=== PATIENT | female | born 1975 | race Caucasian/White ===

== ENCOUNTER 2018-10-26 17:00 | Emergency (ER) | payer MEDICAID, OTHER ==
[~2018-10-26] VITALS: Ht 170.2 cm; Wt 83.9 kg
--- NOTE | 2018-10-26 17:35 | ED Abdominal Pain ---
General Stated Complaint: ABD PAIN, ABD SWELLING Source of Information: Patient Exam Limitations: No Limitations (MARKELL BYERS MD) History of Present Illness Date Seen by Provider: Oct 26, 2018 Time Seen by Provider: 17:32 Initial Comments This 43-year-old white female presents with a complaint of abdominal pain and bloating. The patient has had similar complaints for a prolonged period of time. She has had CAT scan, EGD, and a plethora of laboratory testing. Patient scheduled to see a project accountant at [facility] in November. The patient's pain is sharp in nature located in the lower abdomen. There is no associated vomiting, diarrhea, dysuria, flank pain, fever or chill. Patient is status post cholecystectomy. Patient was seen in the urgent care clinic today and given a steroid shot for her lupus. (MARKELL BYERS MD) Allergies and Home Medications Allergies Coded Allergies: tramadol (Verified Allergy, Intermediate, 10/26/18) Patient Home Medication List Home Medication List Reviewed: Yes (MARKELL BYERS MD) Review of Systems Review of Systems Constitutional: No chills, No fever EENTM: No Symptoms Reported Cardiovascular: Denies Chest Pain Gastrointestinal: See HPI, Abdominal Pain; Denies Diarrhea, Denies Vomiting Genitourinary: No Symptoms Reported Musculoskeletal: joint pain (Lupus) Skin: no symptoms reported Psychiatric/Neurological: No Symptoms Reported Endocrine: No Symptoms Reported Hematologic/Lymphatic: No Symptoms Reported (MARKELL BYERS MD) Past Bwbilxy-Qlawgn-Hmfkdv Hx Past Med/Social Hx: Reviewed Nursing Past Med/Soc Hx (MARKELL BYERS MD) Patient Social History Recent Foreign Travel: No Contact w/Someone Who Travel: No (MARKELL BYERS MD) Physical Exam Vital Signs Vital Signs - First Documented 10/26/18 17:09 Temp 98.6 Pulse 99 Resp 18 B/P (MAP) 131/82 (98) Pulse Ox 97 (ZACHARY BRANDON DO) Vital Signs Capillary Refill : (MARKELL BYERS MD) Height/Weight/BMI Height: '" Weight: lbs. oz. kg; BMI Method: General Appearance: WD/WN, mild distress HEENT: normal ENT inspection Neck: full range of motion Respiratory: wheezing Cardiovascular: regular rate, rhythm Gastrointestinal: normal bowel sounds, tenderness (moderate in the lower abdomen. No masses or rebound was present.) Extremities: normal range of motion, normal inspection Back: normal inspection Neurologic/Psychiatric: no motor/sensory deficits, alert, normal mood/affect Skin: normal color, warm/dry (MARKELL BYERS MD) Progress/Results/Core Measures Results/Orders Lab Results Laboratory Tests Test 10/26/18 17:35 10/26/18 17:50 Range/Units White Blood Count 5.8 4.3-11.0 10^3/uL Red Blood Count 3.95 L 4.35-5.85 10^6/uL Hemoglobin 12.5 11.5-16.0 G/DL Hematocrit 38 35-52 % Mean Corpuscular Volume 95 80-99 FL Mean Corpuscular Hemoglobin 32 25-34 PG Mean Corpuscular Hemoglobin Concent 33 32-36 G/DL Red Cell Distribution Width 11.7 10.0-14.5 % Platelet Count 252 130-400 10^3/uL Mean Platelet Volume 10.6 H 7.4-10.4 FL Neutrophils (%) (Auto) 84 H 42-75 % Lymphocytes (%) (Auto) 14 12-44 % Monocytes (%) (Auto) 1 0-12 % Eosinophils (%) (Auto) 0 0-10 % Basophils (%) (Auto) 0 0-10 % Neutrophils # (Auto) 4.9 1.8-7.8 X 10^3 Lymphocytes # (Auto) 0.8 L 1.0-4.0 X 10^3 Monocytes # (Auto) 0.0 0.0-1.0 X 10^3 Eosinophils # (Auto) 0.0 0.0-0.3 10^3/uL Basophils # (Auto) 0.0 0.0-0.1 10^3/uL Sodium Level 140 135-145 MMOL/L Potassium Level 4.1 3.6-5.0 MMOL/L Chloride Level 106 98-107 MMOL/L Carbon Dioxide Level 16 L 21-32 MMOL/L Anion Gap 18 H 5-14 MMOL/L Blood Urea Nitrogen 10 7-18 MG/DL Creatinine 0.55 L 0.60-1.30 MG/DL Estimat Glomerular Filtration Rate > 60 BUN/Creatinine Ratio 18 Glucose Level 145 H 70-105 MG/DL Calcium Level 9.1 8.5-10.1 MG/DL Corrected Calcium 8.5-10.1 MG/DL Total Bilirubin 0.2 0.1-1.0 MG/DL Aspartate Amino Transf (AST/SGOT) 11 5-34 U/L Alanine Aminotransferase (ALT/SGPT) 6 0-55 U/L Alkaline Phosphatase 98 40-136 U/L Total Protein 7.5 6.4-8.2 GM/DL Albumin 4.7 H 3.2-4.5 GM/DL Lipase 47 8-78 U/L Urine Color YELLOW Urine Clarity CLEAR Urine pH 5.5 5-9 Urine Specific [place] <=1.005 1.016-1.022 Urine Protein NEGATIVE NEGATIVE Urine Glucose (UA) NEGATIVE NEGATIVE Urine Ketones NEGATIVE NEGATIVE Urine Nitrite NEGATIVE NEGATIVE Urine Bilirubin NEGATIVE NEGATIVE Urine Urobilinogen 0.2 NORMAL MG/DL Urine Leukocyte Esterase NEGATIVE NEGATIVE Urine RBC (Auto) TRACE H NEGATIVE Urine RBC 2-5 H /HPF Urine WBC 0-2 /HPF Urine Squamous Epithelial Cells 2-5 /HPF Urine Renal Epithelial Cells NONE /HPF Urine Crystals NONE /LPF Urine Bacteria TRACE /HPF Urine Casts NONE /LPF Urine Mucus NONE /LPF Urine Culture Indicated NO (ZACHARY BRANDON DO) My Orders Orders - ZACHARY BRANDON DO Ns Iv 1000 Ml (Sodium Chloride 0.9%) (10/26/18 18:28) (ZACHARY BRANDON DO) Medications Given in ED Current Medications Medications Dose Ordered Sig/Jill Route Start Time Stop Time Status Last Admin Dose Admin Fentanyl Citrate 50 mcg ONCE ONCE IVP 10/26/18 17:45 10/26/18 17:46 DC 10/26/18 17:44 50 MCG (ZACHARY BRANDON DO) Vital Signs/I&O 10/26/18 17:09 Temp 98.6 Pulse 99 Resp 18 B/P (MAP) 131/82 (98) Pulse Ox 97 (ZACHARY BRANDON DO) Progress Progress Note : Progress Note Boubacar addendum: I assumed care of patient at 6 PM. She relayed a history of chronic right upper quadrant pain sometimes radiating towards the right back, with associated nausea but no vomiting. She has had issues with constipation in the past however she states she is having normal bowel movements at this time, no blood, no melena, no urinary symptoms like frequency or dysuria or hematuria. No shortness of breath or coughing or fever. No pleuritic pain. Abdominal exam for me is benign, mild right upper quadrant tenderness that reproduces pain of chief complaint. Given history of remote bowel obstruction and cholecystectomy spoke to patient about the possibility of a partial bowel obstruction however her abdominal exam is completely benign. She is comfortable at this time. She also has had findings of delayed gastric emptying on prior EGD , she was not familiar with the term gastroparesis. She had taken metoclopramide in the past without adverse effect. Patient did have a mild metabolic acidosis, I suspect that this is related to dehydration. I do not suspect sepsis, I do not suspect gut ischemia. There is no "pain out of proportion", there is no atrial fibrillation. I did provide a fluid bolus. Patient is tolerating oral intake and feels better. She would like to go home. She will return for any new or worsening symptoms. I recommended that she keep her upcoming appointment with gastroenterology and I also recommended that she make an appointment with a general surgeon. She has not been able to follow-up with the surgeon because her cholecystectomy was in [place]. She is stable for discharge at this time. (ZACHARY BRANDON DO) Departure Impression Primary Impression: Abdominal pain Additional Impressions: Nausea Metabolic acidosis Disposition: HOME, SELF-CARE Condition: Stable Departure-Patient Inst. Referrals: NO,LOCAL PHYSICIAN (PCP) Primary Care Physician CLARK HERNÁNDEZ DO Patient Instructions: Dehydration, Adult (DC) Scripts Lansoprazole (Lansoprazole) 15 Mg Capsule. 15 MG PO DAILY for 60 Days, #60 CAP Prov: ZACHARY BRANDON DO 10/26/18 Metoclopramide HCl (Metoclopramide HCl) 10 Mg Tablet 10 MG PO QIDPCHS for 30 Days, #120 TAB Prov: ZACHARY BRANDON DO 10/26/18 MARKELL BYERS MD Oct 26, 2018 17:35 ZACHARY BRANDON DO Oct 26, 2018 19:07
[2018-10-26 17:45] LABS: HEMATOCRIT 38 % (35-52); HEMOGLOBIN 12.5 G/DL (11.5-16.0); MEAN CORPUSCULAR HEMOGLOBIN 32 PG (25-34); WHITE BLOOD COUNT 5.8 10^3/uL (4.3-11.0)
[2018-10-26] MEDS ORDERED: fentaNYL INJECTION 100 MCG/2 ML AMP IVP ONE (17:45)
[2018-10-26 17:46] LABS: BASOPHILS % (AUTO) 0 % (0-10); EOSINOPHILS % (AUTO) 0 % (0-10); LYMPHOCYTES # (AUTO) 0.8 X 10^3 (1.0-4.0); LYMPHOCYTES % (AUTO) 14 % (12-44); MEAN CORPUSCULAR HGB CONC 33 G/DL (32-36); MEAN CORPUSCULAR VOLUME 95 FL (80-99); MEAN PLATELET VOLUME 10.6 FL (7.4-10.4); MONOCYTES % (AUTO) 1 % (0-12); NEUTROPHILS # (AUTO) 4.9 X 10^3 (1.8-7.8); NEUTROPHILS % (AUTO) 84 % (42-75); PLATELET COUNT 252 10^3/uL (130-400); RED CELL DISTRIBUTION WIDTH 11.7 % (10.0-14.5)
[2018-10-26 18:17] LABS: ALKALINE PHOSPHATASE 98 U/L (40-136); BILIRUBIN,TOTAL 0.2 MG/DL (0.1-1.0); BUN/CREATININE RATIO 18; CALCIUM 9.1 MG/DL (8.5-10.1); CARBON DIOXIDE 16 MMOL/L (21-32); CHLORIDE 106 MMOL/L (98-107); CREATININE SERUM 0.55 MG/DL (0.60-1.30); GFR ESTIMATED > 60; GLUCOSE 145 MG/DL (70-105); POTASSIUM 4.1 MMOL/L (3.6-5.0); SODIUM 140 MMOL/L (135-145)
[2018-10-26 18:18] LABS: ALANINE AMINOTRANSFERASE 6 U/L (0-55); ALBUMIN 4.7 GM/DL (3.2-4.5); LIPASE 47 U/L (8-78); TOTAL PROTEIN 7.5 GM/DL (6.4-8.2)
[2018-10-26 18:20] LABS: CLARITY,URINE CLEAR; COLOR,URINE YELLOW; PH,URINE 5.5 (5-9)
[2018-10-26 18:21] LABS: BILIRUBIN,URINE NEGATIVE (NEGATIVE); GLUCOSE, URINE (UA) NEGATIVE (NEGATIVE); KETONES,URINE NEGATIVE (NEGATIVE); LEUKOCYTE ESTERASE ,URINE NEGATIVE (NEGATIVE); NITRITE,URINE NEGATIVE (NEGATIVE); PROTEIN,URINE NEGATIVE (NEGATIVE); UROBILINOGEN,URINE 0.2 MG/DL (NORMAL)
[2018-10-26 18:22] LABS: BACTERIA,URINE TRACE /HPF; WBC,URINE 0-2 /HPF
[2018-10-26] MEDS ORDERED: ALPR1TAB7 (18:25)
[2018-10-26] MEDS ORDERED: ROPI0.5T2 (18:25)
[2018-10-26] MEDS ORDERED: HYDR200T78 PO (18:25)
[2018-10-26] MEDS ORDERED: NS IV 1000 ML 1,000 ML IV STA (18:28)
[2018-10-26] MEDS ORDERED: METO10TA3 PO (19:17)
[2018-10-26] MEDS ORDERED: LANS15CA5 PO (19:17)
[2018-10-26 19:29] VITALS: BP 137/74
[2018-10-26] MEDS ORDERED: fentaNYL INJECTION 100 MCG/2 ML AMP IVP STA (19:35)
--- OUTSIDE RECORDS SUMMARY | 2018-10-26 20:51 | XMS REPORT ---
Author Author ARMANI JARRETT Organization [facility] Address [address] [place] [address] Care Team Providers Care Prism Inspector Name Role Phone ARMANI JARRETT Unavailable PROBLEMS Type Condition ICD9-CM Code [id number] Code Onset Dates Condition Status SNOMED Code Problem Other chronic pain G89.29 Active 15687478 Problem Narcotic addiction F11.20 Active 10221356 ALLERGIES No Known Allergies ENCOUNTERS Encounter Location Date Diagnosis [facility] [address] [id number], [place] [address] Mar, Other chronic pain G89.29 and Narcotic addiction F11.20 [facility] [address] [id number], [place] [address] Mar, IMMUNIZATIONS No Known Immunizations SOCIAL HISTORY Never Assessed REASON FOR VISIT Establish Care, PT brought her medical records with susan Lynch MA PLAN OF CARE Activity Details Follow Up prn Reason: VITAL SIGNS Height 67.25 in 2017-04-27 Weight 129.4 lbs 2017-04-27 Temperature 98.6 degrees Fahrenheit 2017-04-27 Heart Rate 72 bpm 2017-04-27 Respiratory Rate 18 2017-04-27 BMI 20.11 kg/m2 2017-04-27 Blood pressure systolic 108 mmHg 2017-04-27 Blood pressure diastolic 68 mmHg 2017-04-27 MEDICATIONS Medication Instructions Dosage Frequency Start Date End Date Duration Status Hydroxychloroquine Sulfate 200 MG Orally Once a day 1 tablet with food or milk 24h Active Ropinirole HCl 0.5 MG Orally Once a day 1 tablet 1 to 3 hours before bedtime 24h Active OxyContin 60 MG Orally every 12 hrs 1 tablet 12h Active Potassium Chloride ER 20 MEQ Orally Once a day 1 tablet with food 24h Active Depo-Provera 150 MG/ML 1 ml Active Alprazolam 1 MG Orally Twice a day 1 tablet 12h Active Oxycodone HCl 5 MG Orally every 6 hrs 1 tablet 6h Active RESULTS No Results PROCEDURES Procedure Date Ordered Result Body Site DRUG TEST PRSMV DIR OPT OBS Apr 27, 2017 INSTRUCTIONS MEDICATIONS ADMINISTERED No Known Medications MEDICAL (GENERAL) HISTORY Type Description Date Medical History lupus Medical History Arthritis Medical History fibromyalgia Surgical History cholecystectomy 2008 Surgical History section x2 Hospitalization History Surgery(s)/Childbirth(s) Hospitalization History low pot. 01/2017
--- OUTSIDE RECORDS SUMMARY | 2018-10-26 20:51 | XMS REPORT ---
Author Author ARMANI JARRETT Organization [facility] Address [address] [place] [address] Care Team Providers Care Letter Carrier Name Role Phone ARMANI JARRETT Unavailable PROBLEMS Type Condition ICD9-CM Code [id number] Code Onset Dates Condition Status SNOMED Code Problem Other chronic pain G89.29 Active 84383254 Problem Narcotic addiction F11.20 Active 56267340 ALLERGIES No Known Allergies ENCOUNTERS Encounter Location Date Diagnosis [facility] [address] [id number], [place] [address] Mar, Other chronic pain G89.29 and Narcotic addiction F11.20 [facility] [address] [id number], [place] [address] Mar, IMMUNIZATIONS No Known Immunizations SOCIAL HISTORY Never Assessed REASON FOR VISIT PMH obtained. TGrosdidilauren RN PLAN OF CARE VITAL SIGNS MEDICATIONS Medication Instructions Dosage Frequency Start Date End Date Duration Status Hydroxychloroquine Sulfate 200 MG Orally Once a day 1 tablet with food or milk 24h Active Ropinirole HCl 0.5 MG Orally Once a day 1 tablet 1 to 3 hours before bedtime 24h Active Depo-Provera 150 MG/ML 1 ml Active RESULTS No Results PROCEDURES No Known procedures INSTRUCTIONS MEDICATIONS ADMINISTERED No Known Medications MEDICAL (GENERAL) HISTORY Type Description Date Medical History lupus Medical History Arthritis Medical History fibromyalgia Surgical History cholecystectomy 2008 Surgical History section x2 Hospitalization History Surgery(s)/Childbirth(s) Hospitalization History low pot. 01/2017
== END 2018-10-26 19:36 | disposition home or self-care (01) ==
LOC: EDUNIT# 17:00 → ER FS 17:03
DX: R10.30 Lower abdominal pain, unspecified (principal); R11.0 Nausea; E87.2 Acidosis; Z90.49 Acquired absence of other specified parts of digestive tract; Z88.6 Allergy status to analgesic agent
CPT/HCPCS: 36415; 80053; 81000; 83690; 85025

== ENCOUNTER 2019-02-18 20:07 | Emergency (ER) | payer MEDICAID ==
[~2019-02-18] VITALS: Ht 170.2 cm; Wt 83.9 kg
[~2019-02-18 20:07] MED LIST: ALPR1TAB7; HYDR200T78 PO; LANS15CA5 PO; METO10TA3 PO; ROPI0.5T2
--- OUTSIDE RECORDS SUMMARY | 2019-02-18 20:35 | XMS REPORT | Continuity of Care Document ---
Author Organization Unknown Address Unknown Allergies There is no data. Medications There is no data. Problems There is no data. Procedures There is no data. Results There is no data. Encounters ACCT No. Visit Date/Time Discharge Status Pt. Type Provider Facility Loc./Unit Complaint [id number] 01/24/2019 14:30:00 01/24/2019 23:59:59 CLS Outpatient [facility]UE[facility]
--- NOTE | 2019-02-18 20:41 | ED Abdominal Pain ---
General Chief Complaint: Head/Cervical Problems Stated Complaint: HEADACHENAUSEA Nursing Triage Note: pt states alonzo since this am, rates at a 10, with nausea Sepsis Screen: No Definite Risk Source of Information: Patient History of Present Illness Date Seen by Provider: Feb 18, 2019 Time Seen by Provider: 20:38 Initial Comments Patient is a 43-year-old female with history of frequent migraines who presents with typical migraine-like headache presents when awaking from sleep this morning. Headache is retro-orbital described as throbbing and associated with light and sound sensitivity. Patient also reports nausea and vomiting 4 times. Patient took ibuprofen earlier today and rest without if improvement of symptoms. Reports increased stress and recent change in sleep schedule. No recent illnesses. No fever chills, sweats, neck pain, rash, insect bites. No extremity weakness or loss of sensation. No other acute symptoms or complaints. Patient last received Depo-Provera injection one month ago. Timing/Duration: 12 Hours Severity/Quality: Moderate Allergies and Home Medications Allergies Coded Allergies: tramadol (Verified Allergy, Intermediate, 10/26/18) Home Medications Lansoprazole 15 Mg Capsule.dr, 15 MG PO DAILY Prescribed by: ZACHARY BRANDON on 10/26/181916 Metoclopramide HCl 10 Mg Tablet, 10 MG PO QIDPCHS Prescribed by: ZACHARY BRANDON on 10/26/181916 Patient Home Medication List Home Medication List Reviewed: Yes Review of Systems Review of Systems Constitutional: see HPI EENTM: See HPI Respiratory: See HPI Cardiovascular: See HPI Gastrointestinal: See HPI Genitourinary: See HPI Musculoskeletal: see HPI Skin: see HPI Psychiatric/Neurological: See HPI Endocrine: No Symptoms Reported Hematologic/Lymphatic: See HPI Past Yeimjgz-Nnvdqc-Eapzjq Hx Past Med/Social Hx: Reviewed Nursing Past Med/Soc Hx Patient Social History Alcohol Use: Denies Use Recreational Drug Use: No Smoking Status: Current Everyday Smoker Type Used: Cigars 2nd Hand Smoke Exposure: No Recent Foreign Travel: No Contact w/Someone Who Travel: No Recent Infectious Disease Expo: No Recent Hopitalizations: No Physical Abuse: No Sexual Abuse: No Mistreated: No Fear: No Seasonal Allergies Seasonal Allergies: No Past Medical History Surgeries: Yes Section, Gallbladder Respiratory: No Cardiac: No Neurological: No Genitourinary: No Gastrointestinal: No Musculoskeletal: No Arthritis, Fibromyalgia Endocrine: Yes Lupus HEENT: No Cancer: No Psychosocial: No Integumentary: No Blood Disorders: No Adverse Reaction/Blood Tranf: No Physical Exam Vital Signs Vital Signs - First Documented 02/18/19 20:24 Temp 97.7 Pulse 82 Resp 20 B/P (MAP) 130/78 (95) Pulse Ox 100 O2 Delivery Room Air Capillary Refill : Less Than 3 Seconds Height/Weight/BMI Height: 5'7.00" Weight: 185lbs. oz. 83.326042gr; BMI Method:Stated General Appearance: WD/WN, mild distress HEENT: PERRL/EOMI, normal ENT inspection, pharynx normal Neck: non-tender, full range of motion, supple Respiratory: chest non-tender, lungs clear Cardiovascular: regular rate, rhythm Gastrointestinal: normal bowel sounds, non tender Neurologic/Psychiatric: felt hooker II-XII nml as tested, no motor/sensory deficits, alert, normal mood/affect, oriented x 3 Focused Exam Sepsis Stage: Ruled Out Progress/Results/Core Measures Results/Orders My Orders Orders - FRACISCO WOLFE DO Metoclopramide Injection (Reglan Injecti (02/18/19 20:45) Diphenhydramine Injection (Benadryl Inje (02/18/19 20:45) Ketorolac Injection (Toradol Injection) (02/18/19 20:45) Ns Iv 1000 Ml (Sodium Chloride 0.9%) (02/18/19 20:45) Medications Given in ED Current Medications Medications Dose Ordered Sig/Jill Route Start Time Stop Time Status Last Admin Dose Admin Diphenhydramine HCl 25 mg ONCE ONCE IM 02/18/19 20:45 02/18/19 20:46 DC 02/18/19 20:50 25 MG Ketorolac Tromethamine 30 mg ONCE ONCE IVP 02/18/19 20:45 02/18/19 20:46 DC 02/18/19 20:51 30 MG Metoclopramide HCl 10 mg ONCE ONCE IVP 02/18/19 20:45 02/18/19 20:46 DC 02/18/19 20:50 10 MG Vital Signs/I&O 02/18/19 20:24 Temp 97.7 Pulse 82 Resp 20 B/P (MAP) 130/78 (95) Pulse Ox 100 O2 Delivery Room Air Blood Pressure Mean: 95 Departure Communication (Admissions) Typical migraine headache, normal neuro exam. Typical migraine cocktail given. Headache resolved. Patient requesting discharge home. Impression Primary Impression: Migraine Disposition: HOME, SELF-CARE Condition: Improved Departure-Patient Inst. Referrals: NO,LOCAL PHYSICIAN (PCP/Family) Primary Care Physician Patient Instructions: Migraine Headache (DC) Add. Discharge Instructions: Please go home and rest. Follow-up with your PCP as needed. All discharge instructions reviewed with patient and/or family. Voiced understanding. FRACISCO WOLFE DO Feb 18, 2019 20:41
[2019-02-18] MEDS ORDERED: NS IV 1000 ML 1,000 ML IV SCH (20:45)
[2019-02-18] MEDS ORDERED: diphenhydrAMINE 50 MG/ML INJ (BENADRYL) IM ONE (20:45)
[2019-02-18] MEDS ORDERED: KETOROLAC 30 MG/ML VIAL IVP ONE (20:45)
[2019-02-18] MEDS ORDERED: METOCLOPRAMIDE INJ 10 MG/2 ML (REGLAN) IVP ONE (20:45)
[2019-02-18 21:06] VITALS: BP 119/79
== END 2019-02-18 21:06 | disposition home or self-care (01) ==
LOC: EDUNIT# 20:07 → ER FS 20:11
DX: G43.909 Migraine, unspecified, not intractable, without status migrainosus (principal); M79.7 Fibromyalgia; M32.9 Systemic lupus erythematosus, unspecified; F17.290 Nicotine dependence, other tobacco product, uncomplicated; Z88.5 Allergy status to narcotic agent
CPT/HCPCS: 99282

== ENCOUNTER 2019-09-10 07:19 | Emergency (ER) | payer MEDICAID ==
[~2019-09-10] VITALS: Ht 170 cm; Wt 94.0 kg
--- NOTE | 2019-09-10 07:55 | ED Abdominal Pain ---
General Chief Complaint: Abdominal/GI Problems Stated Complaint: VOMTING,STOMACH PAINS Nursing Triage Note: Has had chills and vomiting for 4 days and states is unable to keep anything down. Has hx of stomach ulcers and states stomach is burning now. Has had zofran at home with no relief. Sepsis Screen: No Definite Risk Source of Information: Patient, Family Exam Limitations: No Limitations History of Present Illness Date Seen by Provider: Sep 10, 2019 Time Seen by Provider: 07:50 Initial Comments This 44-year-old white female presents with a complaint of persistent nausea vomiting and epigastric pain. The patient said associated chills. She denies upper respiratory symptoms. She denies black or tarry stools. She denies hematemesis. She has had no dysuria or frequency. She denies diarrhea. Given gastric pain is sharp in nature and nonradiating. The patient relates that it is moderately severe. Allergies and Home Medications Allergies Coded Allergies: tramadol (Verified Allergy, Intermediate, 10/26/18) Home Medications Lansoprazole 15 Mg Capsule.dr, 15 MG PO DAILY Prescribed by: ZACHARY BRANDON on 10/26/181916 Metoclopramide HCl 10 Mg Tablet, 10 MG PO QIDPCHS Prescribed by: ZACHARY BRANDON on 10/26/181916 Patient Home Medication List Home Medication List Reviewed: Yes Review of Systems Review of Systems Constitutional: chills EENTM: No Symptoms Reported Respiratory: No Symptoms Reported; Denies Cough Cardiovascular: No Symptoms Reported; Denies Chest Pain Gastrointestinal: Abdominal Pain (epigastric) Genitourinary: No Symptoms Reported; Denies Burning, Denies Frequency Musculoskeletal: no symptoms reported Skin: no symptoms reported; No rash Psychiatric/Neurological: No Symptoms Reported Endocrine: No Symptoms Reported Hematologic/Lymphatic: No Symptoms Reported Past Anshpgt-Nmfabm-Xxpgop Hx Past Med/Social Hx: Reviewed Nursing Past Med/Soc Hx Patient Social History Alcohol Use: Denies Use Recreational Drug Use: No Smoking Status: Current Everyday Smoker Type Used: Cigars 2nd Hand Smoke Exposure: No Recent Foreign Travel: No Contact w/Someone Who Travel: No Recent Infectious Disease Expo: No Recent Hopitalizations: No Physical Abuse: No Sexual Abuse: No Mistreated: No Fear: No Seasonal Allergies Seasonal Allergies: No Past Medical History Surgeries: Yes Section, Gallbladder Respiratory: No Cardiac: No Neurological: No Genitourinary: No Gastrointestinal: No Musculoskeletal: No Arthritis, Fibromyalgia Endocrine: Yes Lupus HEENT: No Cancer: No Psychosocial: No Integumentary: No Blood Disorders: No Adverse Reaction/Blood Tranf: No Physical Exam Vital Signs Vital Signs - First Documented 09/10/19 07:45 Temp 36.6 Pulse 96 Resp 18 B/P (MAP) 154/89 (110) Pulse Ox 98 Capillary Refill : Less Than 3 Seconds Height/Weight/BMI Height: 5'7.00" Weight: 185lbs. oz. 83.596200xl; 32.00 BMI Method:Stated General Appearance: WD/WN, no apparent distress HEENT: normal ENT inspection Neck: normal inspection Respiratory: lungs clear Cardiovascular: regular rate, rhythm, no murmur Gastrointestinal: normal bowel sounds, soft, tenderness (minimal in the epigastric area) Extremities: normal range of motion, normal inspection Neurologic/Psychiatric: no motor/sensory deficits, alert Skin: normal color, warm/dry; No rash Progress/Results/Core Measures Results/Orders Lab Results Laboratory Tests Test 09/10/19 07:52 09/10/19 08:44 Range/Units White Blood Count 10.5 4.3-11.0 10^3/uL Red Blood Count 4.39 4.35-5.85 10^6/uL Hemoglobin 13.5 11.5-16.0 G/DL Hematocrit 40 35-52 % Mean Corpuscular Volume 91 80-99 FL Mean Corpuscular Hemoglobin 31 25-34 PG Mean Corpuscular Hemoglobin Concent 34 32-36 G/DL Red Cell Distribution Width 12.0 10.0-14.5 % Platelet Count 372 130-400 10^3/uL Mean Platelet Volume 9.5 7.4-10.4 FL Neutrophils (%) (Auto) 73 42-75 % Lymphocytes (%) (Auto) 15 12-44 % Monocytes (%) (Auto) 6 0-12 % Eosinophils (%) (Auto) 1 0-10 % Basophils (%) (Auto) 1 0-10 % Neutrophils # (Auto) 8.0 H 1.8-7.8 X 10^3 Lymphocytes # (Auto) 1.6 1.0-4.0 X 10^3 Monocytes # (Auto) 0.7 0.0-1.0 X 10^3 Eosinophils # (Auto) 0.1 0.0-0.3 10^3/uL Basophils # (Auto) 0.1 0.0-0.1 10^3/uL Sodium Level 137 135-145 MMOL/L Potassium Level 3.5 L 3.6-5.0 MMOL/L Chloride Level 97 L 98-107 MMOL/L Carbon Dioxide Level 21 21-32 MMOL/L Anion Gap 19 H 5-14 MMOL/L Blood Urea Nitrogen 15 7-18 MG/DL Creatinine 0.64 0.60-1.30 MG/DL Estimat Glomerular Filtration Rate > 60 BUN/Creatinine Ratio 23 Glucose Level 127 H 70-105 MG/DL Calcium Level 9.5 8.5-10.1 MG/DL Corrected Calcium 8.5-10.1 MG/DL Total Bilirubin 0.4 0.1-1.0 MG/DL Aspartate Amino Transf (AST/SGOT) 14 5-34 U/L Alanine Aminotransferase (ALT/SGPT) 7 0-55 U/L Alkaline Phosphatase 83 40-136 U/L Total Protein 8.3 H 6.4-8.2 GM/DL Albumin 4.9 H 3.2-4.5 GM/DL Lipase 40 8-78 U/L Urine Color YELLOW Urine Clarity CLEAR Urine pH 6.5 5-9 Urine Specific [place] 1.020 1.016-1.022 Urine Protein TRACE NEGATIVE Urine Glucose (UA) NEGATIVE NEGATIVE Urine Ketones 2+ H NEGATIVE Urine Nitrite NEGATIVE NEGATIVE Urine Bilirubin 1+ H NEGATIVE Urine Urobilinogen 0.2 < = 1.0 MG/DL Urine Leukocyte Esterase TRACE NEGATIVE Urine RBC (Auto) 1+ H NEGATIVE Urine RBC 2-5 H /HPF Urine WBC 2-5 /HPF Urine Squamous Epithelial Cells 25-50 H /HPF Urine Crystals NONE /LPF Urine Bacteria 1+ /HPF Urine Casts NONE /LPF Urine Mucus SMALL H /LPF Urine Culture Indicated NO My Orders Orders - MARKELL BYERS MD Cbc With Automated Diff (09/10/19 07:48) Comprehensive Metabolic Panel (09/10/19 07:48) Lipase (09/10/19 07:48) Ua Culture If Indicated (09/10/19 07:48) Ns Iv 1000 Ml (Sodium Chloride 0.9%) (09/10/19 08:00) Promethazine Injection (Phenergan Injec (09/10/19 08:00) Diphenhydramine Injection (Benadryl Inje (09/10/19 08:00) Lidocaine 2% Viscous 15 Ml (Xylocaine Vi (09/10/19 08:45) Antacid Suspension (Mylanta Suspension (09/10/19 08:45) Fentanyl Injection (Sublimaze Injection (09/10/19 09:30) Metoclopramide Injection (Reglan Injecti (09/10/19 10:00) Ct Abdomen/Pelvis Wo (09/10/19 10:08) Medications Given in ED Current Medications Medications Dose Ordered Sig/Jill Route Start Time Stop Time Status Last Admin Dose Admin Al Hydrox/Mg Hydrox/Simethicone 30 ml ONCE ONCE PO 09/10/19 08:45 09/10/19 08:46 DC 09/10/19 08:51 30 ML Diphenhydramine HCl 25 mg ONCE ONCE IVP 09/10/19 08:00 09/10/19 08:01 DC 09/10/19 07:54 25 MG Fentanyl Citrate 50 mcg ONCE ONCE IVP 09/10/19 09:30 09/10/19 09:31 DC 09/10/19 09:41 50 MCG Lidocaine HCl 5 ml ONCE ONCE PO 09/10/19 08:45 09/10/19 08:46 DC 09/10/19 08:51 5 ML Metoclopramide HCl 10 mg ONCE ONCE IVP 09/10/19 10:00 09/10/19 10:01 DC 09/10/19 09:57 10 MG Promethazine HCl 25 mg ONCE ONCE IVP 09/10/19 08:00 09/10/19 08:01 DC 09/10/19 07:55 25 MG Vital Signs/I&O 09/10/19 07:45 Temp 36.6 Pulse 96 Resp 18 B/P (MAP) 154/89 (110) Pulse Ox 98 Blood Pressure Mean: 110 Progress Progress Note : Time: 10:55 Progress Note The patient had a negative CT of the abdomen and pelvis. The patient's laboratory evaluation was similarly unremarkable. Patient received IV fluids, Phenergan and Benadryl, fentanyl, and Reglan IV. Patient had good response to her medications and fluids. Over the patient hospitalization but she wants to stay at home today. I will dismiss her with Reglan and omeprazole. She will follow-up with her doctor tomorrow. I invited her to return to emergency department if she had any further problems or questions Departure Impression Primary Impression: Nausea and vomiting Qualified Codes: R11.2 - Nausea with vomiting, unspecified Additional Impression: Abdominal pain Qualified Codes: R10.13 - Epigastric pain Disposition: 01 HOME, SELF-CARE Condition: Improved Departure-Patient Inst. Decision time for Depature: 10:58 Referrals: [facility] (PCP) Primary Care Physician JAMIN DUENAS APRN (Family) Primary Care Physician Patient Instructions: Acute Abdomen (Belly Pain), Adult (DC), Nausea and Vomiting, Adult (DC) Add. Discharge Instructions: Omeprazole and Reglan for abdominal pain and nausea. Close follow-up. tomorrow. Return if any problems or questions. All discharge instructions reviewed with patient and/or family. Voiced understanding. Scripts Omeprazole (Omeprazole) 40 Mg Capsule. 40 MG PO Q12H for 7 Days, CAP Prov: MARKELL BYERS MD 09/10/19 Metoclopramide HCl (Reglan) 10 Mg Tablet 10 MG PO QID PRN for NAUSEA/VOMITING for 7 Days, TAB Prov: MARKELL BYERS MD 09/10/19 MARKELL BYERS MD Sep 10, 2019 07:55
[2019-09-10 07:59] LABS: BASOPHILS % (AUTO) 1 % (0-10); EOSINOPHILS % (AUTO) 1 % (0-10); HEMATOCRIT 40 % (35-52); HEMOGLOBIN 13.5 G/DL (11.5-16.0); LYMPHOCYTES % (AUTO) 15 % (12-44); MEAN CORPUSCULAR HEMOGLOBIN 31 PG (25-34); MEAN CORPUSCULAR HGB CONC 34 G/DL (32-36); MEAN CORPUSCULAR VOLUME 91 FL (80-99); MEAN PLATELET VOLUME 9.5 FL (7.4-10.4); MONOCYTES % (AUTO) 6 % (0-12); NEUTROPHILS % (AUTO) 73 % (42-75); PLATELET COUNT 372 10^3/uL (130-400); WHITE BLOOD COUNT 10.5 10^3/uL (4.3-11.0)
[2019-09-10 08:00] LABS: BASOPHILS # (AUTO) 0.1 10^3/uL (0.0-0.1); EOSINOPHILS # (AUTO) 0.1 10^3/uL (0.0-0.3); LYMPHOCYTES # (AUTO) 1.6 X 10^3 (1.0-4.0); MONOCYTES # (AUTO) 0.7 X 10^3 (0.0-1.0)
[2019-09-10] MEDS ORDERED: NS IV 1000 ML 1,000 ML IV SCH (08:00)
[2019-09-10] MEDS ORDERED: diphenhydrAMINE 50 MG/ML INJ (BENADRYL) IVP ONE (08:00)
[2019-09-10] MEDS ORDERED: PROMETHAZINE INJ 25 MG/ML (PHENERGAN) AMP IVP ONE (08:00)
[2019-09-10 08:16] LABS: ALANINE AMINOTRANSFERASE 7 U/L (0-55); ALBUMIN 4.9 GM/DL (3.2-4.5); ALKALINE PHOSPHATASE 83 U/L (40-136); BILIRUBIN,TOTAL 0.4 MG/DL (0.1-1.0); BUN/CREATININE RATIO 23; CALCIUM 9.5 MG/DL (8.5-10.1); CARBON DIOXIDE 21 MMOL/L (21-32); CHLORIDE 97 MMOL/L (98-107); CREATININE SERUM 0.64 MG/DL (0.60-1.30); GFR ESTIMATED > 60; GLUCOSE 127 MG/DL (70-105); LIPASE 40 U/L (8-78); POTASSIUM 3.5 MMOL/L (3.6-5.0); SODIUM 137 MMOL/L (135-145); TOTAL PROTEIN 8.3 GM/DL (6.4-8.2)
[2019-09-10] MEDS ORDERED: ANTACID SUSP 30 ML UDC (MYLANTA) PO ONE (08:45)
[2019-09-10] MEDS ORDERED: LIDOCAINE 2% VISCOUS 15 ML UDC PO ONE (08:45)
[2019-09-10 08:56] LABS: CLARITY,URINE CLEAR; COLOR,URINE YELLOW; GLUCOSE, URINE (UA) NEGATIVE (NEGATIVE); KETONES,URINE 2+ (NEGATIVE); NITRITE,URINE NEGATIVE (NEGATIVE); PH,URINE 6.5 (5-9); PROTEIN,URINE TRACE (NEGATIVE)
[2019-09-10 08:57] LABS: BACTERIA,URINE 1+ /HPF; BILIRUBIN,URINE 1+ (NEGATIVE); LEUKOCYTE ESTERASE ,URINE TRACE (NEGATIVE); SQUAMOUS EPITHELIAL CELL,UR 25-50 /HPF
[2019-09-10] MEDS ORDERED: fentaNYL INJECTION 100 MCG/2 ML AMP IVP ONE (09:30)
[2019-09-10] MEDS ORDERED: METOCLOPRAMIDE INJ 10 MG/2 ML (REGLAN) IVP ONE (10:00)
--- NOTE | 2019-09-10 10:47 | Diagnostic Imaging Report ---
PROCEDURE: CT abdomen and pelvis without contrast. TECHNIQUE: Multiple contiguous axial images were obtained through the abdomen and pelvis without the use of intravenous contrast. Auto Exposure Controls were utilized during the CT exam to meet ALARA standards for radiation dose reduction. DATE: September 10, 2019. COMPARISON: None. INDICATION: 44-year-old female, vomiting and chills. Stomach pain. FINDINGS: There are limitations for evaluation of the abdominal organs, neoplastic processes, abscess, and limited evaluation of the vasculature relating to the lack of intravenous contrast. The visualized portions of the lung bases are clear. The heart is not enlarged. There is no identified pericardial effusion. The liver is unremarkable in size and contour. The patient is status post cholecystectomy. There is no biliary ductal dilation. The main pancreatic duct is not abnormally dilated. Limited noncontrast evaluation of the pancreatic parenchyma is unremarkable. The spleen is normal in size. The adrenal glands are unremarkable. Unremarkable appearance of the renal parenchyma. The urinary collecting systems are not distended. There is no identified renal or ureteral stone. The urinary bladder is unremarkable in appearance. There is a low-attenuation left adnexal lesion on axial image 74 measuring 2.1 cm in size most likely reflecting an ovarian follicle or cyst. The intestinal tract is not distended. The appendix is not well identified. There are no secondary findings to suggest acute appendicitis. There is no free intraperitoneal air. There is no drainable fluid collection. There is no free pelvic fluid. There is no identified abnormally enlarged lymph node in the abdomen or pelvis which meets CT size criteria for adenopathy. There is no identified acute bony abnormality. IMPRESSION: CT ABDOMEN AND PELVIS. 1. No identified acute abnormality in the abdomen or pelvis. Dictated by: Dictated on workstation # [id number]
[2019-09-10] MEDS ORDERED: METO-310 PO (11:02)
[2019-09-10] MEDS ORDERED: OMEP40CA27 PO (11:02)
[2019-09-10 11:07] VITALS: BP 123/76
== END 2019-09-10 11:13 | disposition home or self-care (01) ==
LOC: EDUNIT# 07:19 → ER FS 07:20
DX: R11.2 Nausea with vomiting, unspecified (principal); R10.13 Epigastric pain; M79.7 Fibromyalgia; F17.290 Nicotine dependence, other tobacco product, uncomplicated; Z88.5 Allergy status to narcotic agent
CPT/HCPCS: 36415; 74176; 80053; 81000; 83690; 85025

== ENCOUNTER 2019-10-08 16:18 | Emergency (ER) | payer MEDICAID ==
[~2019-10-08] VITALS: Ht 170 cm; Wt 98.8 kg
[~2019-10-08 16:18] MED LIST changes: +METO-310 PO; +OMEP40CA27 PO
--- NOTE | 2019-10-08 16:21 | ED General ---
General Stated Complaint: VOMITING Source of Information: Patient History of Present Illness Date Seen by Provider: Oct 08, 2019 Time Seen by Provider: 16:21 Initial Comments Patient is a 44-year-old female who comes to the emergency department today co mplaining of nausea and vomiting. Patient has a known history of ulcers which cause her ER visits not infrequently. She is on PPI dosing twice daily. No fever or chills. She has been Allergies and Home Medications Allergies Coded Allergies: tramadol (Verified Allergy, Intermediate, 10/26/18) Home Medications Lansoprazole 15 Mg Capsule.dr, 15 MG PO DAILY Prescribed by: ZACHARY BRANDON on 10/26/181916 Metoclopramide HCl 10 Mg Tablet, 10 MG PO QIDPCHS Prescribed by: ZACHARY BRANDON on 10/26/181916 Metoclopramide HCl 10 Mg Tablet, 10 MG PO QID PRN for NAUSEA/VOMITING Prescribed by: MARKELL BYERS MD on 09/10/19 110 Omeprazole 40 Mg Capsule.dr, 40 MG PO Q12H Prescribed by: MARKELL BYERS MD on 09/10/19 1102 Patient Home Medication List Home Medication List Reviewed: Yes Review of Systems Review of Systems Constitutional: no symptoms reported EENTM: no symptoms reported Respiratory: no symptoms reported Gastrointestinal: see HPI Musculoskeletal: no symptoms reported Skin: no symptoms reported Psychiatric/Neurological: No Symptoms Reported Past Pypxltx-Fnntjz-Eizuar Hx Patient Social History Type Used: Cigars 2nd Hand Smoke Exposure: No Recent Foreign Travel: No Recent Hopitalizations: No Seasonal Allergies Seasonal Allergies: No Past Medical History Surgeries: Yes Section, Gallbladder Respiratory: No Cardiac: No Neurological: No Genitourinary: No Gastrointestinal: No Musculoskeletal: No Arthritis, Fibromyalgia Endocrine: Yes Lupus HEENT: No Cancer: No Psychosocial: No Integumentary: No Blood Disorders: No Adverse Reaction/Blood Tranf: No Physical Exam Vital Signs Vital Signs - First Documented 10/08/19 16:26 Temp 36.5 Pulse 101 Resp 16 B/P (MAP) 156/89 (111) Capillary Refill : Height, Weight, BMI Height: 5'7.00" Weight: 185lbs. oz. 83.934065jo; 32.00 BMI Method:Stated General Appearance: No Apparent Distress, WD/WN HEENT: PERRL/EOMI, TMs Normal Neck: Supple Respiratory: Lungs Clear Cardiovascular: Regular Rate, Rhythm Gastrointestinal: Normal Bowel Sounds, Non Tender, Soft Extremity: Normal Capillary Refill Neurologic/Psychiatric: Alert, Oriented x3 Progress/Results/Core Measures Suspected Sepsis SIRS Temperature: Pulse: Respiratory Rate: Blood Pressure / Mean: Laboratory Tests 10/08/19 17:25: Creatinine 0.59L Results/Orders Lab Results Laboratory Tests Test 10/08/19 17:25 Range/Units Sodium Level 138 135-145 MMOL/L Potassium Level 4.3 3.6-5.0 MMOL/L Chloride Level 103 98-107 MMOL/L Carbon Dioxide Level 21 21-32 MMOL/L Anion Gap 14 5-14 MMOL/L Blood Urea Nitrogen 17 7-18 MG/DL Creatinine 0.59 L 0.60-1.30 MG/DL Estimat Glomerular Filtration Rate > 60 BUN/Creatinine Ratio 29 Glucose Level 120 H 70-105 MG/DL Calcium Level 9.3 8.5-10.1 MG/DL My Orders Orders - HOMAR CORDOVA DO Metoclopramide Injection (Reglan Injecti (10/08/19 16:30) Diphenhydramine Injection (Benadryl Inje (10/08/19 16:30) Famotidine Injection (Pepcid Injection) (10/08/19 16:30) Morphine Injection (Morphine Injection (10/08/19 16:26) Basic Metabolic Panel (10/08/19 16:27) Antacid Suspension (Mylanta Suspension (10/08/19 17:15) Medications Given in ED Current Medications Medications Dose Ordered Sig/Jill Route Start Time Stop Time Status Last Admin Dose Admin Al Hydrox/Mg Hydrox/Simethicone 30 ml ONCE ONCE PO 10/08/19 17:15 10/08/19 17:16 DC 10/08/19 17:18 30 ML Diphenhydramine HCl 25 mg ONCE ONCE IVP 10/08/19 16:30 10/08/19 16:31 DC 10/08/19 16:49 25 MG Famotidine 20 mg ONCE ONCE IVP 10/08/19 16:30 10/08/19 16:31 DC 10/08/19 16:48 20 MG Metoclopramide HCl 10 mg ONCE ONCE IVP 10/08/19 16:30 10/08/19 16:31 DC 10/08/19 16:49 10 MG Vital Signs/I&O 10/08/19 16:26 Temp 36.5 Pulse 101 Resp 16 B/P (MAP) 156/89 (111) Capillary Refill : Progress Note : Time: 17:50 Progress Note ED summary: Patient is evaluated in the ER for symptoms which she describes to be typical for her ulcer related pain. She is on twice a day dosing of PPI at home. She was in the emergency department very recently with a similar presentation. Based on her physical exam today, I did not feel additional CT imaging was warranted as her belly was soft and with no guarding or rebound. In the ER, IV was placed and she was given IV fluids. BMP was completed and was stable. Patient was given medication for symptom relief as well as GI cocktail and she was feeling much improved. Patient is discharged home. I recommended she continue her current regimen and follow up with her primary care doctor. Return to ER as needed. Departure Impression Primary Impression: Gastritis Disposition: 01 HOME, SELF-CARE Condition: Improved Departure-Patient Inst. Referrals: [facility] (PCP) Primary Care Physician JAMIN DUENAS APRN (Family) Primary Care Physician HOMAR CORDOVA DO Oct 08, 2019 16:21
[2019-10-08] MEDS ORDERED: morphine INJ 10 MG/ML 1ML (SYR OR VIAL) IVP STA (16:26)
[2019-10-08] MEDS ORDERED: diphenhydrAMINE 50 MG/ML INJ (BENADRYL) IVP ONE (16:30)
[2019-10-08] MEDS ORDERED: METOCLOPRAMIDE INJ 10 MG/2 ML (REGLAN) IVP ONE (16:30)
[2019-10-08] MEDS ORDERED: FAMOTIDINE 20MG/2ML IV (PEPCID) IVP ONE (16:30)
[2019-10-08] MEDS ORDERED: ANTACID SUSP 30 ML UDC (MYLANTA) PO ONE (17:15)
[2019-10-08 17:53] LABS: SODIUM 138 MMOL/L (135-145)
[2019-10-08 17:54] LABS: BUN/CREATININE RATIO 29; CALCIUM 9.3 MG/DL (8.5-10.1); CARBON DIOXIDE 21 MMOL/L (21-32); CHLORIDE 103 MMOL/L (98-107); CREATININE SERUM 0.59 MG/DL (0.60-1.30); GFR ESTIMATED > 60; GLUCOSE 120 MG/DL (70-105); POTASSIUM 4.3 MMOL/L (3.6-5.0)
[2019-10-08 18:02] VITALS: BP 163/85
--- OUTSIDE RECORDS SUMMARY | 2019-10-16 15:54 | XMS REPORT ---
Author Author [facility] Address [address] [place] [address] Care Team Providers Care Groundhand Name Role Phone DANNI NORTON Unavailable PROBLEMS Type Condition ICD9-CM Code HBA75-XJ Code Onset Dates Condition S tatus SNOMED Code Problem Gastroesophageal reflux disease with esophagitis K 21.0 Feb, 0 [id number] Problem Nausea with vomiting, unspecified 787.01 Feb 0 23661281 Problem Anxiety state F41.1 Jun, 0 198 460904 Problem Chronic pain G89.29 14 May, 2010 0 8242 3001 Problem Routine gynecological examination Z01.419 Mar 0 [id number] Problem Nausea with vomiting, unspecified R11.2 Feb 0 73987866 Problem Tobacco use Z72.0 Apr, 0 09623 3000 Problem Gastroesophageal reflux disease with esophagitis 530.11 Feb, 0 548520573 Problem Dehydration 276.51 Feb, 0 86060 006 Problem Acute superficial gastritis without hemorrhage 535.40 Feb, 0 0551285 Problem Irritable bowel syndrome 564.1 14 May, 2010 0 47316487 Problem Irritable bowel syndrome K58.9 14 May, 2010 0 78775869 Problem Mid back pain M54.9 May, 0 161 907423 Problem Undifferentiated connective tissue disease 710.9 Aug, 0 586405537 Problem Abscess, gluteal, right 682.5 Apr, 0 805294353 Problem Cyclical vomiting with nausea G43.A0 Feb, 0 Problem Tobacco use 305.1 Apr, 0 39035 3000 Problem Cyclical vomiting with nausea 536.2 Feb, 0 093143969 Problem Fibromyalgia 729.1 December, 0 2030 87482 Problem Upper back pain, chronic M54.9 May, 0 366346597 Problem Anxiety state 300.00 Jun, 0 198 418076 Problem Upper back pain, chronic 724.5 05 May, 2017 0 424010330 Problem Chronic pain 338.29 14 May, 2010 0 8242 3001 Problem Chronic midline low back pain without sciatica 724.2 05 May, 2017 0 337613361 Problem Lump or mass in breast 611.72 03 Oct, 2013 0 92565210 Problem Osteoarthritis of lumbar spine with myelopathy 721.42 05 May, 2017 0 06878932 Problem Routine gynecological examination V72.31 28 Mar 0 [id number] Problem Abscess, gluteal, right L02.31 Apr, 0 241780067 Problem Lump or mass in breast N63.0 03 Oct, 2013 0 53170724 Problem Acute superficial gastritis without hemorrhage K29 .00 Feb, 0 08077210 Problem Narcotic addiction F11.20 Active 7 9978928 Problem Peroneal nerve palsy 355.3 20 Apr, 2017 0 858357020 Problem Dehydration E86.0 Feb, 0 40145 006 Problem Other chronic pain G89.29 Active 8 5151361 Problem Fibromyalgia M79.7 December, 0 2030 43986 Problem Hypokalemia E87.6 Feb, 0 70430 004 Problem Hypokalemia 276.8 Feb, 0 18943 004 Problem Peroneal nerve palsy G57.30 20 Apr, 2017 0 484748090 Problem Mid back pain 724.5 05 May, 2017 0 161 405623 Problem Visit for screening mammogram Z12.31 Feb, 17 0 02076078 Problem Osteoarthritis of lumbar spine with myelopathy M47 .16 May, 0 34661255 Problem Visit for screening mammogram V76.12 Feb, 17 0 54354170 Problem Undifferentiated connective tissue disease M35.9 Aug, 0 179106973 Problem Chronic midline low back pain without sciatica M54 .5 05 May, 2017 0 584257654 ALLERGIES Substance Reaction Event Type Date Status Tramadol HCl itching Drug Allergy Oct, Active ENCOUNTERS Encounter Location Date Diagnosis [address] [id number] Mar, [address] [address] Mar, [place] [id number] [facility] [id number] [address] [place] [address] [id number] Feb, Caries K02.9 [facility] [address] [id number] [address] [place] [id number] Feb, Caries K02.9 and Dental exam ination Z01.[address] [place] [address] December, Encounter for Depo-Provera contraception Z30.42 [facility] [address] [place] [place] [address] Oct, Allergic conjunctivitis H10.[address] [place] [address] Oct, [address] [place] [address] Sep, Other chronic pain G89.29 [facility] [address] [id number] [address] [place] [phone] Sep, [address] [place] [address] Sep, [facility] [address] [id number] [address] [place] [address] Aug, [facility] [address] [facility] [id number] [address] [place] [phone] Aug, [facility] [address] [id number] [address] [place] [phone] Aug, Dental examination Z01.20 an d Caries K02.9 [facility] [address] [id number] [address] [place] [phone] Aug, [facility] [address] [id number] [address] [place] [phone] Jul, [facility] [address] [id number] [address] [place] [phone] Jul, [facility] [address] [id number] [address] [place] [phone] Jul, [facility] [address] [facility] [id number] [address] [place] [phone] Mar, Other chronic pain G89.29 an d Narcotic addiction F11.20 [facility] [address] [facility] [id number] [address] [place] [phone] Mar, IMMUNIZATIONS No Known Immunizations SOCIAL HISTORY Never Assessed REASON FOR VISIT eye's itching and burning, Pt presents with bilateral eyes itching and burning x 2 wks/ pt denies any fever PLAN OF CARE Activity Details Follow Up prn Reason: VITAL SIGNS Height 67.25 in 2018-11-10 Weight 187 lbs 2018-11-10 Temperature 96.6 degrees Fahrenheit 2018-11-10 BMI 29.07 kg/m2 2018-11-10 MEDICATIONS Medication Instructions Dosage Frequency Start Date End Date Duration S tatus Ropinirole HCl 0.5 MG Orally Once a day 1 tablet 1 to 3 hours be fore bedtime 24h Active Allergy Eye Drops 0.025 % Ophthalmic Twice a day as needed 1 drop into affected eye Active Depo-Provera 150 MG/ML 1 ml A ctive Hydroxychloroquine Sulfate 200 MG Orally Once a day 1 tablet wit h food or milk 24h Active PredniSONE 20 MG Orally BID 1 tablet 12h 14 Oct, 2018 5 days Active RESULTS No Results PROCEDURES No Known procedures INSTRUCTIONS MEDICATIONS ADMINISTERED No Known Medications MEDICAL (GENERAL) HISTORY Type Description Date Medical History lupus Medical History Arthritis Medical History fibromyalgia Surgical History cholecystectomy 2008 Surgical History section x2 Hospitalization History Surgery(s)/Childbirth(s) Hospitalization History low potassium 01/2017
--- OUTSIDE RECORDS SUMMARY | 2019-10-16 15:54 | XMS REPORT | Continuity of Care Document ---
Author Organization Unknown Address Unknown Phone Unavailable Allergies Active Description Code Type Severity Reaction Onset Reported/Identified Relationship to Patient Clinical Status Yes tramadol [id number] Drug Allergy Moderate N/A 10/26/2018 Medications There is no data. Problems Date Dx Coded Attending Type Code Diagnosis Diagnosed By 10/26/2018 ZACHARY BRANDON DO T Ot E87. 2 ACIDOSIS 10/26/2018 ZACHARY BRANDON DO T Ot R10. 30 LOWER ABDOMINAL PAIN, UNSPECIFIED 10/26/2018 HASEEB BRANDON DOED T Ot R11. 0 NAUSEA 10/26/2018 HASEEB BRANDON DOED T Ot R14. 0 ABDOMINAL DISTENSION (GASEOUS) 10/26/2018 ZACHARY BRANDON DO T Ot Z88. 6 ALLERGY STATUS TO ANALGESIC AGENT STATUS 10/26/2018 ZACHARY BRANDON DO T Ot Z90. 49 ACQUIRED ABSENCE OF OTHER SPECIFIED PART 02/20/2019 FRACISCO WOLFE DO Ot F17.290 NICOTINE DEPENDENCE, OTHER TOBACCO PRODU 02/20/2019 FRACISCO WOLFE DO Ot G43.909 MIGRAINE, UNSP, NOT INTRACTABLE, WITHOUT 02/20/2019 FRACISCO WOLFE DO Ot M32.9 SYSTEMIC LUPUS ERYTHEMATOSUS, UNSPECIFIE 02/20/2019 FRACISCO WOLFE DO Ot M79.7 FIBROMYALGIA 02/20/2019 FRACISCO WOLFE DO Ot R51 HEADACHE 02/20/2019 FRACISCO WOLFE DO Ot Z88.5 ALLERGY STATUS TO NARCOTIC AGENT STATUS 09/15/2019 MODESTA LANDA, MARKELL Rey Ot F17.290 NICOTINE DEPENDENCE, OTHER TOBACCO PRODU 09/15/2019 MARKELL BYERS MD Ot M79. 7 FIBROMYALGIA 09/15/2019 MARKELL BYERS MD Ot R10. 13 EPIGASTRIC PAIN 09/15/2019 MARKELL BYERS MD Ot R11. 2 NAUSEA WITH VOMITING, UNSPECIFIED 09/15/2019 MARKELL BYERS MD Ot Z88. 5 ALLERGY STATUS TO NARCOTIC AGENT STATUS Procedures There is no data. Results Test Result Range Complete blood count (CBC) with automate d white blood cell (WBC) differential - 10/26/18 17:35 Blood leukocytes automated count (number/volume) 5.8 10*3/uL 4.3-11.0 Blood erythrocytes automated count (number/volume) 3.95 10*6/uL 4.35-5.85 Venous blood hemoglobin measurement (mass/volume) 12.5 g/dL 11.5-16.0 Blood hematocrit (volume fraction) 38 % 35-52 Automated erythrocyte mean corpuscular volume 95 [ foz_us] 80-99 Automated erythrocyte mean corpuscular h emoglobin (mass per erythrocyte) 32 pg 25-34 Automated erythrocyte mean corpuscular h emoglobin concentration measurement (mass/volume) 33 g/dL 32-36 Automated erythrocyte distribution width ratio 11. 7 % 10.0- 14.5 Automated blood platelet count (count/volume) 252 10*3/uL 130-400 Automated blood platelet mean volume measurement 10.6 [foz_us] 7.4-10.4 Automated blood neutrophils/100 leukocytes 84 % 42-75 Automated blood lymphocytes/100 leukocytes 14 % 12-44 Blood monocytes/100 leukocytes 1 % 0-12 Automated blood eosinophils/100 leukocytes 0 % 0-10 Automated blood basophils/100 leukocytes 0 % 0-10 Blood neutrophils automated count (number/volume) 4.9 10*3 1.8-7.8 Blood lymphocytes automated count (number/volume) 0.8 10*3 1.0-4.0 Blood monocytes automated count (number/volume) 0. 0 10*3 0.0-1.0 Automated eosinophil count 0.0 10*3/uL 0 .0-0.3 Automated blood basophil count (count/volume) 0.0 10*3/uL 0.0-0.1 Comprehensive metabolic panel - 10/26/18 17:35 Serum or plasma sodium measurement (moles/volume) 140 mmol/L 135-145 Serum or plasma potassium measurement (moles/volume) 4.1 mmol/L 3.6-5.0 Serum or plasma chloride measurement (moles/volume) 106 mmol/L 98-107 Carbon dioxide 16 mmol/L 21-32 Serum or plasma anion gap determination (moles/volume) 18 mmol/L 5-14 Serum or plasma urea nitrogen measurement (mass/volume ) 10 mg/dL 7-18 Serum or plasma creatinine measurement (mass/volume) 0.55 mg/dL 0.60-1.30 Serum or plasma urea nitrogen/creatinine mass ratio 18 NRG Serum or plasma creatinine measurement w ith calculation of estimated glomerular filtration rate > NRG Serum or plasma glucose measurement (mass/volume) 145 mg/dL 70-105 Serum or plasma calcium measurement (mass/volume) 9.1 mg/dL 8.5-10.1 Serum or plasma total bilirubin measurement (mass/volu me) 0.2 mg/dL 0.1-1.0 Serum or plasma alkaline phosphatase yair surement (enzymatic activity/volume) 98 U/L 40-136 Serum or plasma aspartate aminotransfera se measurement (enzymatic activity/volume) 11 U/L 5-34 Serum or plasma alanine aminotransferase measurement (enzymatic activity/volume) 6 U/L 0-55 Serum or plasma protein measurement (mass/volume) 7.5 g/dL 6.4-8.2 Serum or plasma albumin measurement (mass/volume) 4.7 g/dL 3.2-4.5 Lipase - 10/26/18 17:35 Lipase 47 U/L 8-78 Complete urinalysis with reflex to cultu re - 10/26/18 17:50 Urine color determination YELLOW NRG Urine clarity determination CLEAR NR G Urine pH measurement by test strip 5.5 5-9 Specific gravity of urine by test strip <= 1.016-1.022 Urine protein assay by test strip, semi-quantitative NEGATIVE NEGATIVE Urine glucose detection by automated test strip NE GATIVE NEGATIVE Erythrocytes detection in urine sediment by light micr oscopy TRACE NEGATIVE Urine ketones detection by automated test strip NE GATIVE NEGATIVE Urine nitrite detection by test strip NEGATIVE NEGATIVE Urine total bilirubin detection by test strip NEGA TIVE NEGATIVE Urine urobilinogen measurement by automated test strip (mass/volume) 0.2 mg/dL NORMAL Urine leukocyte esterase detection by dipstick NEG ATIVE NEGATIVE Automated urine sediment erythrocyte cou nt by microscopy (number/high power field) [HPF] NRG Automated urine sediment leukocyte count by microscopy (number/high power field) [HPF] NRG Bacteria detection in urine sediment by light microsco py TRACE NRG Squamous epithelial cells detection in u rine sediment by light microscopy 2-5 NRG Crystals detection in urine sediment by light microsco py NONE NRG Casts detection in urine sediment by light microscopy NONE NRG Mucus detection in urine sediment by light microscopy NONE NRG Complete urinalysis with reflex to culture NO NRG Renal epithelial cells detection in urin e sediment by light microscopy NONE NRG Complete blood count (CBC) with automate d white blood cell (WBC) differential - 09/10/19 07:52 Blood leukocytes automated count (number/volume) 10.5 10*3/uL 4.3-11.0 Blood erythrocytes automated count (number/volume) 4.39 10*6/uL 4.35-5.85 Venous blood hemoglobin measurement (mass/volume) 13.5 g/dL 11.5-16.0 Blood hematocrit (volume fraction) 40 % 35-52 Automated erythrocyte mean corpuscular volume 91 [ foz_us] 80-99 Automated erythrocyte mean corpuscular h emoglobin (mass per erythrocyte) 31 pg 25-34 Automated erythrocyte mean corpuscular h emoglobin concentration measurement (mass/volume) 34 g/dL 32-36 Automated erythrocyte distribution width ratio 12. 0 % 10.0- 14.5 Automated blood platelet count (count/volume) 372 10*3/uL 130-400 Automated blood platelet mean volume measurement 9.5 [foz_us] 7.4-10.4 Automated blood neutrophils/100 leukocytes 73 % 42-75 Automated blood lymphocytes/100 leukocytes 15 % 12-44 Blood monocytes/100 leukocytes 6 % 0-12 Automated blood eosinophils/100 leukocytes 1 % 0-10 Automated blood basophils/100 leukocytes 1 % 0-10 Blood neutrophils automated count (number/volume) 8.0 10*3 1.8-7.8 Blood lymphocytes automated count (number/volume) 1.6 10*3 1.0-4.0 Blood monocytes automated count (number/volume) 0. 7 10*3 0.0-1.0 Automated eosinophil count 0.1 10*3/uL 0 .0-0.3 Automated blood basophil count (count/volume) 0.1 10*3/uL 0.0-0.1 Comprehensive metabolic panel - 09/10/19 07:52 Serum or plasma sodium measurement (moles/volume) 137 mmol/L 135-145 Serum or plasma potassium measurement (moles/volume) 3.5 mmol/L 3.6-5.0 Serum or plasma chloride measurement (moles/volume) 97 mmol/L 98-107 Carbon dioxide 21 mmol/L 21-32 Serum or plasma anion gap determination (moles/volume) 19 mmol/L 5-14 Serum or plasma urea nitrogen measurement (mass/volume ) 15 mg/dL 7-18 Serum or plasma creatinine measurement (mass/volume) 0.64 mg/dL 0.60-1.30 Serum or plasma urea nitrogen/creatinine mass ratio 23 NRG Serum or plasma creatinine measurement w ith calculation of estimated glomerular filtration rate > NRG Serum or plasma glucose measurement (mass/volume) 127 mg/dL 70-105 Serum or plasma calcium measurement (mass/volume) 9.5 mg/dL 8.5-10.1 Serum or plasma total bilirubin measurement (mass/volu me) 0.4 mg/dL 0.1-1.0 Serum or plasma alkaline phosphatase yair surement (enzymatic activity/volume) 83 U/L 40-136 Serum or plasma aspartate aminotransfera se measurement (enzymatic activity/volume) 14 U/L 5-34 Serum or plasma alanine aminotransferase measurement (enzymatic activity/volume) 7 U/L 0-55 Serum or plasma protein measurement (mass/volume) 8.3 g/dL 6.4-8.2 Serum or plasma albumin measurement (mass/volume) 4.9 g/dL 3.2-4.5 Lipase - 09/10/19 07:52 Lipase 40 U/L 8-78 Complete urinalysis with reflex to cultu re - 09/10/19 08:44 Urine color determination YELLOW NRG Urine clarity determination CLEAR NR G Urine pH measurement by test strip 6.5 5-9 Specific gravity of urine by test strip 1.020 1.016-1.022 Urine protein assay by test strip, semi-quantitative TRACE NEGATIVE Urine glucose detection by automated test strip NE GATIVE NEGATIVE Erythrocytes detection in urine sediment by light micr oscopy 1+ NEGATIVE Urine ketones detection by automated test strip 2+ NEGATIVE Urine nitrite detection by test strip NEGATIVE NEGATIVE Urine total bilirubin detection by test strip 1+ NEGATIVE Urine urobilinogen measurement by automated test strip (mass/volume) 0.2 mg/dL < = 1.0 Urine leukocyte esterase detection by dipstick TRA CE NEGATIVE Automated urine sediment erythrocyte cou nt by microscopy (number/high power field) [HPF] NRG Automated urine sediment leukocyte count by microscopy (number/high power field) [HPF] NRG Bacteria detection in urine sediment by light microsco py 1+ NRG Squamous epithelial cells detection in u rine sediment by light microscopy 25-50 NRG Crystals detection in urine sediment by light microsco py NONE NRG Casts detection in urine sediment by light microscopy NONE NRG Mucus detection in urine sediment by light microscopy SMALL NRG Complete urinalysis with reflex to culture NO NRG Whole blood basic metabolic panel - 05/19 17:25 Serum or plasma sodium measurement (moles/volume) 138 mmol/L 135-145 Serum or plasma potassium measurement (moles/volume) 4.3 mmol/L 3.6-5.0 Serum or plasma chloride measurement (moles/volume) 103 mmol/L 98-107 Carbon dioxide 21 mmol/L 21-32 Serum or plasma anion gap determination (moles/volume) 14 mmol/L 5-14 Serum or plasma urea nitrogen measurement (mass/volume ) 17 mg/dL 7-18 Serum or plasma creatinine measurement (mass/volume) 0.59 mg/dL 0.60-1.30 Serum or plasma urea nitrogen/creatinine mass ratio 29 NRG Serum or plasma creatinine measurement w ith calculation of estimated glomerular filtration rate > NRG Serum or plasma glucose measurement (mass/volume) 120 mg/dL 70-105 Serum or plasma calcium measurement (mass/volume) 9.3 mg/dL 8.5-10.1 Encounters ACCT No. Visit Date/Time Discharge Status Pt. Type Provider Facility Loc./Unit Complaint [id number] 06/13/2019 11:45:00 06/13/2019 23:59:5 9 [facility] Outpatient JAMIN DUENAS [facility] [id number] 10/09/2019 19:56:00 020 22:31:00 DIS Emergency PEYTON JACOBO DO L [facility] ER FS ABD PAIN [id number] 10/08/2019 16:19:00 020 18:05:00 DIS Emergency CORDOVA HOMAR ALLEN L [facility] ER FS VOMITING [id number] 09/10/2019 07:20:00 020 11:13:00 DIS Outpatient MARKELL BYERS MD [facility] ER FS VOMTING,STOMACH PAINS [id number] 02/18/2019 20:11:00 019 21:06:00 DIS Outpatient FRACISCO WOLFE DO [facility] ER FS HEADACHENAUSEA [id number] 10/26/2018 17:03:00 019 19:36:00 DIS Emergency ZACHARY BRANDON DO [facility] ER FS ABD PAIN, ABD SWELLING
== END 2019-10-08 18:05 | disposition home or self-care (01) ==
LOC: EDUNIT# 16:18 → ER FS 16:19
DX: K29.70 Gastritis, unspecified, without bleeding (principal); Z88.5 Allergy status to narcotic agent
CPT/HCPCS: 36415; 80048; 96374; 96375

== ENCOUNTER 2019-10-09 19:55 | Emergency (ER) | payer MEDICAID ==
[~2019-10-09] VITALS: Ht 170.1 cm; Wt 97.6 kg
--- NOTE | 2019-10-09 20:34 | ED Abdominal Pain ---
General Chief Complaint: Abdominal/GI Problems Stated Complaint: ABD PAIN Source of Information: Patient Exam Limitations: No Limitations History of Present Illness Date Seen by Provider: Oct 09, 2019 Time Seen by Provider: 20:34 Initial Comments 44-year-old female presents with chronic abdominal pain, nausea vomiting. Patient was seen last night with negative labs. She was seen September 10 with negative labs and CT. Patient reports that the nausea and vomiting or worse today than last night. Patient reports she has severe gastritis with burning in her stomach and up to her esophagus. Patient states that she's recently had an EGD and is on Carafate and multiple medications for her GERD. Allergies and Home Medications Allergies Coded Allergies: tramadol (Verified Allergy, Intermediate, 10/26/18) Home Medications Lansoprazole 15 Mg Capsule.dr, 15 MG PO DAILY Prescribed by: ZACHARY BRANDON on 10/26/181916 Metoclopramide HCl 10 Mg Tablet, 10 MG PO QIDPCHS Prescribed by: ZACHARY BRANDON on 10/26/181916 Metoclopramide HCl 10 Mg Tablet, 10 MG PO QID PRN for NAUSEA/VOMITING Prescribed by: MARKELL BYERS MD on 09/10/19 110 Omeprazole 40 Mg Capsule.dr, 40 MG PO Q12H Prescribed by: MARKELL BYERS MD on 09/10/19 1102 Patient Home Medication List Home Medication List Reviewed: Yes Review of Systems Review of Systems Constitutional: no symptoms reported EENTM: No Symptoms Reported Respiratory: No Symptoms Reported Cardiovascular: No Symptoms Reported Gastrointestinal: See HPI Musculoskeletal: no symptoms reported Skin: no symptoms reported Psychiatric/Neurological: No Symptoms Reported Past Gflcjfy-Nrxtpi-Mcmatq Hx Past Med/Social Hx: Reviewed Nursing Past Med/Soc Hx Patient Social History Type Used: Cigarettes 2nd Hand Smoke Exposure: No Recent Foreign Travel: No Contact w/Someone Who Travel: No Recent Hopitalizations: No Seasonal Allergies Seasonal Allergies: No Past Medical History Surgeries: Yes Section, Gallbladder Respiratory: No Cardiac: No Neurological: No Genitourinary: No Gastrointestinal: Yes Gastroesophageal Reflux, Ulcer Musculoskeletal: No Arthritis, Fibromyalgia Endocrine: Yes Lupus HEENT: No Cancer: No Psychosocial: No Integumentary: No Blood Disorders: No Adverse Reaction/Blood Tranf: No Physical Exam Vital Signs Vital Signs - First Documented 10/09/19 10/09/19 20:27 22:28 Temp 36.9 Pulse 95 Resp 18 B/P (MAP) 150/85 (106) Pulse Ox 99 O2 Delivery Room Air Capillary Refill : Height/Weight/BMI Height: 5'7.00" Weight: 185lbs. oz. 83.074903bg; 34.00 BMI Method:Stated General Appearance: no apparent distress Respiratory: chest non-tender, lungs clear Cardiovascular: normal peripheral pulses, regular rate, rhythm Gastrointestinal: soft; No distended, No guarding, No rebound; tenderness (mild epigastric) Extremities: normal range of motion, non-tender Progress/Results/Core Measures Results/Orders My Orders Orders - PEYTON JACOBO DO Acute Abd Series (10/09/19 20:44) Ondansetron Injection (Zofran Injectio (10/09/19 20:45) Lidocaine 2% Viscous 15 Ml (Xylocaine Vi (10/09/19 20:45) Ns Iv 1000 Ml (Sodium Chloride 0.9%) (10/09/19 20:44) Antacid Suspension (Mylanta Suspension (10/09/19 20:45) Famotidine Injection (Pepcid Injection) (10/09/19 20:44) Ed Iv/Invasive Line Start (10/09/19 20:44) Metoclopramide Injection (Reglan Injecti (10/09/19 21:54) Medications Given in ED Current Medications Medications Dose Ordered Sig/Jill Route Start Time Stop Time Status Last Admin Dose Admin Al Hydrox/Mg Hydrox/Simethicone 30 ml ONCE ONCE PO 10/09/19 20:45 10/09/19 20:46 DC 10/09/19 21:06 30 ML Lidocaine HCl 15 ml ONCE ONCE PO 10/09/19 20:45 10/09/19 20:46 DC 10/09/19 21:06 15 ML Ondansetron HCl 4 mg ONCE ONCE IVP 10/09/19 20:45 10/09/19 20:46 DC 10/09/19 21:06 4 MG Vital Signs/I&O 10/09/19 10/09/19 20:27 22:28 Temp 36.9 36.9 Pulse 95 95 Resp 18 18 B/P (MAP) 150/85 (106) 150/85 (106) Pulse Ox 99 O2 Delivery Room Air Room Air 10/10/19 00:00 Intake Total 1000 ml Balance 1000 ml Progress Progress Note : Time: 22:06 Progress Note Discussed with patient that she just had labs and there is no indication to do her labs since they were just done last night. Patient also had a recent CT that was negative within the last month. I chest x-ray showed no acute process. I discussed with her the need to follow-up with her primary care provider in general surgeon to help get her gastritis and reflux under control. Patient reports she is ready to go home because she is "always and abdominal pain". Patient will be discharged home in stable condition Departure Impression Primary Impression: Gastritis Qualified Codes: K29.50 - Unspecified chronic gastritis without bleeding Disposition: HOME, SELF-CARE Condition: Stable/Unchanged Departure-Patient Inst. Referrals: [facility] (PCP) Primary Care Physician JAMIN DUENAS APRN (Family) Primary Care Physician Patient Instructions: Acid Reflux (Gastroesophageal Reflux Disease) in Adults, Gastritis (DC), Peptic Ulcers (DC) Add. Discharge Instructions: The emergency department focuses on treating and ruling out life-threatening diseases. Whenever possible, a diagnosis is given. However, most patients are given an impression based on their history, physical exam, and workup during your brief time in the ER. Information about probable diagnosis and other educational material has been provided. Please take the time to read and understand this information. It is very important that you follow up with a physician as discussed during the visit today. Failure to adhere to your follow-up instructions may lead to severe disability, injury, or so please make sure to keep your appointments or obtain one as requested. Please keep in mind the emergency department is not designed to your primary care or "family doctor" and nonurgent issues are best evaluated by an outpatient physician All discharge instructions reviewed with patient and/or family. Voiced understanding. PEYTON JACOBO DO Oct 09, 2019 20:34
[2019-10-09] MEDS ORDERED: FAMOTIDINE 20MG/2ML IV (PEPCID) IV STA (20:44)
[2019-10-09] MEDS ORDERED: NS IV 1000 ML 1,000 ML IV STA (20:44)
[2019-10-09] MEDS ORDERED: LIDOCAINE 2% VISCOUS 15 ML UDC PO ONE (20:45)
[2019-10-09] MEDS ORDERED: ONDANSETRON 4 MG/2 ML (SDV) Z0FRAN IVP ONE (20:45)
[2019-10-09] MEDS ORDERED: ANTACID SUSP 30 ML UDC (MYLANTA) PO ONE (20:45)
--- NOTE | 2019-10-09 21:46 | Diagnostic Imaging Report ---
INDICATION: Abdominal pain Single AP view of the chest is obtained with supine and upright views of the abdomen. The lungs are clear, bilaterally. Surgical clips are seen in the region of the gallbladder fossa. There is a moderate amount of stool throughout the colon. There is no evidence of transition point to indicate bowel obstruction. No pathologic abdominal calcification is seen and there is no evidence of free fluid. IMPRESSION: No acute abnormality. Dictated by: Dictated on workstation # [id number]
[2019-10-09] MEDS ORDERED: METOCLOPRAMIDE INJ 10 MG/2 ML (REGLAN) IVP STA (21:54)
[2019-10-09 22:28] VITALS: BP 150/85
--- OUTSIDE RECORDS SUMMARY | 2019-10-18 21:09 | XMS REPORT | Continuity of Care Document ---
Author Organization Unknown Address Unknown Phone Unavailable Allergies Active Description Code Type Severity Reaction Onset Reported/Identified Relationship to Patient Clinical Status Yes tramadol [id number] Drug Allergy Moderate N/A 10/26/2018 Medications There [...] Status Pt. Type Provider Facility Loc./Unit Complaint [id number] 06/13/2019 11:45:00 06/13/2019 23:59:5 9 [facility] Outpatient JAMIN DUENAS [facility] [id number] 10/09/2019 19:56:00 020 22:31:00 DIS Emergency PEYTON JACOBO DO L [facility] ER FS ABD PAIN [id number] 10/08/2019 16:19:00 020 18:05:00 DIS Emergency CORDOVA HOMAR ALLEN L [facility] ER FS VOMITING [id number] 09/10/2019 07:20:00 020 11:13:00 DIS Outpatient MARKELL BYERS MD [facility] ER FS VOMTING,STOMACH PAINS [id number] 02/18/2019 20:11:00 019 21:06:00 DIS Outpatient FRACISCO WOLFE DO [facility] ER FS HEADACHENAUSEA [id number] 10/26/2018 17:03:00 019 19:36:00 DIS Emergency ZACHARY BRANDON DO [facility] ER FS ABD PAIN, ABD SWELLING
== END 2019-10-09 22:31 | disposition home or self-care (01) ==
LOC: EDUNIT# 19:55 → ER FS 19:56
DX: K29.70 Gastritis, unspecified, without bleeding (principal); K21.9 Gastro-esophageal reflux disease without esophagitis; Z88.5 Allergy status to narcotic agent
CPT/HCPCS: 74022; 96361; 96374; 96375

== ENCOUNTER 2020-01-17 08:41 | Emergency (ER) | payer MEDICAID ==
[~2020-01-17] VITALS: Ht 170.2 cm; Wt 89.5 kg
[~2020-01-17 08:41] MED LIST changes: -ROPI0.5T2; +ROPI0.5T4
--- NOTE | 2020-01-17 08:58 | ED General ---
General Stated Complaint: VOMITING; NAUSEA; ABD PAIN History of Present Illness Date Seen by Provider: January 17, 2020 Time Seen by Provider: 08:55 Initial Comments Patient presenting to the emergency department for evaluation of epigastric abdominal pain nausea and vomiting that has been going on for the past 2 days. Patient has a long-standing chronic abdominal pain issue with nausea and vomiting and sees a GI specialist at [facility]. She says she has been tried on multiple medications including PPIs and Carafate and nothing seems to help her. She was started on a new medication 1 month ago that she does not know the name of the says that she ran out of it 2 days ago and then her symptoms resumed. She said she did not have the money to pick it up 2 days ago. She says this pain and nausea and vomiting is consistent with prior episodes and that whenever she comes here she gets a GI cocktail and nausea meds with IV fluids and she feels much better and is able to go home. She denies anything new or different today. She is in no obvious distress with normal vital signs. Allergies and Home Medications Allergies Coded Allergies: tramadol (Verified Allergy, Intermediate, 10/26/18) Home Medications Lansoprazole 15 Mg Capsule., 15 MG PO DAILY Prescribed by: ZACHARY BRANDON on 10/26/181916 Metoclopramide HCl 10 Mg Tablet, 10 MG PO QIDPCHS Prescribed by: ZACHARY BRANDON on 10/26/181916 Metoclopramide HCl 10 Mg Tablet, 10 MG PO QID PRN for NAUSEA/VOMITING Prescribed by: MARKELL BYERS MD on 09/10/191101 Omeprazole 40 Mg Capsule.dr, 40 MG PO Q12H Prescribed by: MARKELL BYERS MD on 09/10/19 1102 Patient Home Medication List Home Medication List Reviewed: Yes Review of Systems Review of Systems Constitutional: no symptoms reported EENTM: no symptoms reported Respiratory: no symptoms reported Cardiovascular: no symptoms reported Gastrointestinal: abdominal pain, nausea, vomiting Genitourinary: no symptoms reported Musculoskeletal: no symptoms reported Psychiatric/Neurological: No Symptoms Reported All Other Systems Reviewed Negative Unless Noted: Yes Past Imoktvv-Ndlyjs-Sowbci Hx Patient Social History Type Used: Cigarettes 2nd Hand Smoke Exposure: No Recent Foreign Travel: No Contact w/Someone Who Travel: No Recent Hopitalizations: No Seasonal Allergies Seasonal Allergies: No Past Medical History Surgeries: Yes Section, Gallbladder Respiratory: No Cardiac: No Neurological: No Genitourinary: No Gastrointestinal: No Gastroesophageal Reflux, Ulcer Musculoskeletal: No Arthritis, Fibromyalgia Endocrine: Yes Lupus HEENT: No Cancer: No Psychosocial: No Integumentary: No Blood Disorders: No Adverse Reaction/Blood Tranf: No Physical Exam Vital Signs Vital Signs - First Documented 01/17/20 08:46 Temp 36.7 Pulse 90 Resp 16 B/P (MAP) 142/93 (109) Pulse Ox 96 O2 Delivery Room Air Capillary Refill : Height, Weight, BMI Height: 5'7.00" Weight: 185lbs. oz. 83.671929kv; 33.00 BMI Method:Stated General Appearance: No Apparent Distress, WD/WN HEENT: PERRL/EOMI Neck: Supple Respiratory: No Respiratory Distress Cardiovascular: Regular Rate, Rhythm Gastrointestinal: Non Tender, Soft Extremity: Normal Capillary Refill Neurologic/Psychiatric: Alert, Oriented x3 Skin: Warm/Dry Progress/Results/Core Measures Suspected Sepsis SIRS Temperature: Pulse: Respiratory Rate: Laboratory Tests 01/17/20 08:56: White Blood Count 13.1H Blood Pressure / Mean: Laboratory Tests 01/17/20 08:56: Creatinine 0.59L, Platelet Count 382, Total Bilirubin 0.3 Results/Orders Lab Results Laboratory Tests Test 01/17/20 08:56 Range/Units White Blood Count 13.1 H 4.3-11.0 10^3/uL Red Blood Count 4.43 4.35-5.85 10^6/uL Hemoglobin 13.2 11.5-16.0 G/DL Hematocrit 40 35-52 % Mean Corpuscular Volume 90 80-99 FL Mean Corpuscular Hemoglobin 30 25-34 PG Mean Corpuscular Hemoglobin Concent 33 32-36 G/DL Red Cell Distribution Width 12.2 10.0-14.5 % Platelet Count 382 130-400 10^3/uL Mean Platelet Volume 10.0 7.4-10.4 FL Neutrophils (%) (Auto) 84 H 42-75 % Lymphocytes (%) (Auto) 12 12-44 % Monocytes (%) (Auto) 4 0-12 % Eosinophils (%) (Auto) 0 0-10 % Basophils (%) (Auto) 0 0-10 % Neutrophils # (Auto) 10.9 H 1.8-7.8 X 10^3 Lymphocytes # (Auto) 1.6 1.0-4.0 X 10^3 Monocytes # (Auto) 0.6 0.0-1.0 X 10^3 Eosinophils # (Auto) 0.0 0.0-0.3 10^3/uL Basophils # (Auto) 0.0 0.0-0.1 10^3/uL Sodium Level 138 135-145 MMOL/L Potassium Level 3.6 3.6-5.0 MMOL/L Chloride Level 97 L 98-107 MMOL/L Carbon Dioxide Level 25 21-32 MMOL/L Anion Gap 16 H 5-14 MMOL/L Blood Urea Nitrogen 12 7-18 MG/DL Creatinine 0.59 L 0.60-1.30 MG/DL Estimat Glomerular Filtration Rate > 60 BUN/Creatinine Ratio 20 Glucose Level 131 H 70-105 MG/DL Calcium Level 9.7 8.5-10.1 MG/DL Corrected Calcium 8.5-10.1 MG/DL Total Bilirubin 0.3 0.1-1.0 MG/DL Aspartate Amino Transf (AST/SGOT) 11 5-34 U/L Alanine Aminotransferase (ALT/SGPT) 7 0-55 U/L Alkaline Phosphatase 83 40-136 U/L Total Protein 7.8 6.4-8.2 GM/DL Albumin 4.6 H 3.2-4.5 GM/DL Lipase 34 8-78 U/L My Orders Orders - ARTHUR COELHO DO Cbc With Automated Diff (01/17/20 08:53) Comprehensive Metabolic Panel (01/17/20 08:53) Lipase (01/17/20 08:53) Promethazine Injection (Phenergan Injec (01/17/20 09:00) Pantoprazole Injection (Protonix Injecti (01/17/20 09:00) Antacid Suspension (Mylanta Suspension (01/17/20 09:00) Lidocaine 2% Viscous 15 Ml (Xylocaine Vi (01/17/20 09:00) Ns Iv 1000 Ml (Sodium Chloride 0.9%) (01/17/20 09:00) Medications Given in ED Current Medications Medications Dose Ordered Sig/Jill Route Start Time Stop Time Status Last Admin Dose Admin Al Hydrox/Mg Hydrox/Simethicone 30 ml ONCE ONCE PO 01/17/20 09:00 01/17/20 09:01 DC 01/17/20 09:19 30 ML Lidocaine HCl 5 ml ONCE ONCE PO 01/17/20 09:00 01/17/20 09:01 DC 01/17/20 09:20 5 ML Pantoprazole 40 mg ONCE ONCE IV 01/17/20 09:00 01/17/20 09:01 DC 01/17/20 09:19 40 MG Promethazine HCl 25 mg ONCE ONCE IVP 01/17/20 09:00 01/17/20 09:01 DC 01/17/20 09:19 25 MG Vital Signs/I&O 01/17/20 08:46 Temp 36.7 Pulse 90 Resp 16 B/P (MAP) 142/93 (109) Pulse Ox 96 O2 Delivery Room Air Capillary Refill : Progress Note : Progress Note Patient with her usual symptoms of abdominal pain nausea and vomiting. I will check basic labs and likely defer imaging given her benign exam and similar symptoms to prior episodes. I will treat her pain and nausea and then reassess. Pain resolved and patient able to tolerate fluids by mouth with no difficulty. Repeat abdominal exam benign. Given patient appears well with normal vital signs benign physical exam workup she'll be discharged in stable condition told to follow with primary care provider within 2-3 days for recheck and fill her medications and I'll prescribe her Phenergan suppositories. Patient aware and agreeable with plan and verbalized understanding of the need for short-term follow-up and strict ED return precautions discussed including worsening pain fevers vomiting or other general concerns. Departure Impression Primary Impression: Abdominal pain Additional Impression: Nausea and vomiting Disposition: 01 HOME, SELF-CARE Condition: Stable Departure-Patient Inst. Referrals: [facility] (PCP) Primary Care Physician JAMIN DUENAS APRN (Family) Primary Care Physician Patient Instructions: Acute Abdomen (Belly Pain), Adult (DC) Scripts Promethazine HCl (Promethazine Suppository) 25 Mg Supp.rect 25 MG RC Q6H PRN for NAUSEA/VOMITING-1ST LINE, #10 SUPP.RECT Prov: ARTHUR COELHO DO 01/17/20 ARTHUR COELHO DO January 17, 2020 08:58
--- OUTSIDE RECORDS SUMMARY | 2020-01-17 08:59 | XMS REPORT | Continuity of Care Document ---
Author Organization Unknown Address Unknown Phone Unavailable Allergies Active Description Code Type Severity Reaction Onset Reported/Identified Relationship to Patient Clinical Status Yes tramadol [id number] Drug Allergy Moderate N/A 10/26/2018 Medications There is no data. Problems Date Dx Coded Attending Type Code Diagnosis Diagnosed By 10/26/2018 HASEEB BRANDON DOED T Ot E87. 2 ACIDOSIS 10/26/2018 HASEEB BRANDON DOED T Ot R10. 30 LOWER ABDOMINAL PAIN, UNSPECIFIED 10/26/2018 ALEKSANDR ALLEN ZACHARY T Ot R11. 0 NAUSEA 10/26/2018 ALEKSANDR ALLEN ZACHARY T Ot R14. 0 ABDOMINAL DISTENSION (GASEOUS) 10/26/2018 HASEEB BRANDON DOED T Ot Z88. 6 ALLERGY STATUS TO ANALGESIC AGENT STATUS 10/26/2018 HASEEB BRANDON DOED T Ot Z90. 49 ACQUIRED ABSENCE OF OTHER SPECIFIED PART 02/18/2019 YANETH ALELN FRACISCO Ot F17.290 NICOTINE DEPENDENCE, OTHER TOBACCO PRODU 02/18/2019 FRACISCO WOLFE DO Ot G43.909 MIGRAINE, UNSP, NOT INTRACTABLE, WITHOUT 02/18/2019 FRACISCO WOLFE DO Ot M32.9 SYSTEMIC LUPUS ERYTHEMATOSUS, UNSPECIFIE 02/18/2019 YANETH ALLEN FRACISCO Ot M79.7 FIBROMYALGIA 02/18/2019 YANETH ALLEN, FRACISCO Ot R51 HEADACHE 02/18/2019 YANETH ALLEN FRACISCO Ot Z88.5 ALLERGY STATUS TO NARCOTIC AGENT STATUS 02/20/2019 YANETH ALLEN FRACISCO Ot F17.290 NICOTINE DEPENDENCE, OTHER TOBACCO PRODU 02/20/2019 YANETH ALLEN FRACISCO Ot G43.909 MIGRAINE, UNSP, NOT INTRACTABLE, WITHOUT 02/20/2019 FRACISCO WOLFE DO Ot M32.9 SYSTEMIC LUPUS ERYTHEMATOSUS, UNSPECIFIE 02/20/2019 YANETH ALLEN, FRACISCO Ot M79.7 FIBROMYALGIA 02/20/2019 YANETH ALLEN, FRACISCO Ot R51 HEADACHE 02/20/2019 YANETH ALLEN, FRACISCO Ot Z88.5 ALLERGY STATUS TO NARCOTIC AGENT STATUS 09/10/2019 MODESTA LANDA, MARKELL Rey Ot F17.290 NICOTINE DEPENDENCE, OTHER TOBACCO PRODU 09/10/2019 MODESTA LANDA, MARKELL Rey Ot M79. 7 FIBROMYALGIA 09/10/2019 MODESTA LANDA, MARKELL Rey Ot R10. 13 EPIGASTRIC PAIN 09/10/2019 MODESTA LANDA, MARKELL Rey Ot R11. 2 NAUSEA WITH VOMITING, UNSPECIFIED 09/10/2019 MODESTA LANDA, MARKELL Candido Ot Z88. 5 ALLERGY STATUS TO NARCOTIC AGENT STATUS 09/15/2019 MODESTA LANDA, MARKELL Rey Ot F17.290 NICOTINE DEPENDENCE, OTHER TOBACCO PRODU 09/15/2019 MODESTA LANDA, MARKELL Rey Ot M79. 7 FIBROMYALGIA 09/15/2019 MODESTA LANDA, MARKELL Rey Ot R10. 13 EPIGASTRIC PAIN 09/15/2019 MODESTA LANDA, MARKELL Rey Ot R11. 2 NAUSEA WITH VOMITING, UNSPECIFIED 09/15/2019 MODESTA LANDA, MARKELL Rey Ot Z88. 5 ALLERGY STATUS TO NARCOTIC AGENT STATUS 10/08/2019 CORDOVA DO, HOMAR L Ot K29.70 GASTRITIS, UNSPECIFIED, WITHOUT BLEEDING 10/08/2019 CORDOVA DO, HOMAR L Ot R11 .2 NAUSEA WITH VOMITING, UNSPECIFIED 10/08/2019 CORDOVA DO, HOMAR L Ot Z88 .5 ALLERGY STATUS TO NARCOTIC AGENT STATUS 10/09/2019 JACOBO DO, PEYTON L Ot K21.9 GASTRO-ESOPHAGEAL REFLUX DISEASE WITHOUT 10/09/2019 JACOBO DO, PEYTON L Ot K29.7 0 GASTRITIS, UNSPECIFIED, WITHOUT BLEEDING 10/09/2019 JACOBO DO, PEYTON L Ot R10.9 UNSPECIFIED ABDOMINAL PAIN 10/09/2019 JACOBO DO, PEYTON L Ot Z88.5 ALLERGY STATUS TO NARCOTIC AGENT STATUS 10/20/2019 CORDOVA DO, HOMAR L Ot K29.70 GASTRITIS, UNSPECIFIED, WITHOUT BLEEDING 10/20/2019 CORDOVA DO, HOMAR L Ot R11 .2 NAUSEA WITH VOMITING, UNSPECIFIED 10/20/2019 CORDOVA DO, HOMAR L Ot Z88 .5 ALLERGY STATUS TO NARCOTIC AGENT STATUS Procedures [...] d white blood cell (WBC) differential - 01/12/20 07:52 Blood leukocytes automated count (number/volume) 10.5 [...] plasma calcium measurement (mass/volume) 9.3 mg/dL 8.5-10.1 COVID-19 ([facility]) - 12/01/19 10:51 PATIENT SYMPTOMATIC? NOT GIVEN NRG SOURCE: NOT GIVEN NRG OVERALL RESULT: NOT DETECTED NOT DETE CTED SARS-CoV-2 RNA: NEGATIVE NEGATIVE BEE-SARS RNA: NEGATIVE NEGATIVE Encounters ACCT No. Visit Date/Time Discharge Status Pt. Type Provider Facility Loc./Unit Complaint [id number] 06/13/2019 11:45:00 06/13/2019 23:59:5 9 [facility] Outpatient JAMIN DUENAS [facility] [id number] 12/01/2019 10:00:00 Document Registration [id number] 10/09/2019 19:56:00 22:31:00 DIS Emergency JACOBO DO, PEYTON L [facility] ER FS ABD PAIN [id number] 10/08/2019 16:19:00 18:05:00 DIS Emergency CORDOVA DO, HOMAR L [facility] ER FS VOMITING [id number] 09/10/2019 07:20:00 11:13:00 DIS Emergency MODESTA LANDA, MARKELL Rey [facility] ER FS VOMTING,STOMACH PAINS [id number] 02/18/2019 20:11:00 019 21:06:00 DIS Emergency FRACISCO WOLFE DO [facility] ER FS HEADACHENAUSEA [id number] 10/26/2018 17:03:00 019 19:36:00 DIS Emergency ZACHARY BRANDON DO [facility] ER FS ABD PAIN, ABD SWELLING
[2020-01-17] MEDS ORDERED: PANTOPRAZOLE 40 MG (PROTONIX) VIAL IV ONE (09:00)
[2020-01-17] MEDS ORDERED: PROMETHAZINE INJ 25 MG/ML (PHENERGAN) AMP IVP ONE (09:00)
[2020-01-17] MEDS ORDERED: LIDOCAINE 2% VISCOUS 15 ML UDC PO ONE (09:00)
[2020-01-17] MEDS ORDERED: NS IV 1000 ML 1,000 ML IV SCH (09:00)
[2020-01-17] MEDS ORDERED: ANTACID SUSP 30 ML UDC (MYLANTA) PO ONE (09:00)
[2020-01-17 09:40] LABS: HEMATOCRIT 40 % (35-52); HEMOGLOBIN 13.2 G/DL (11.5-16.0); MEAN CORPUSCULAR HEMOGLOBIN 30 PG (25-34); MEAN CORPUSCULAR HGB CONC 33 G/DL (32-36); MEAN CORPUSCULAR VOLUME 90 FL (80-99); PLATELET COUNT 382 10^3/uL (130-400); RED CELL DISTRIBUTION WIDTH 12.2 % (10.0-14.5); WHITE BLOOD COUNT 13.1 10^3/uL (4.3-11.0)
[2020-01-17 09:41] LABS: BASOPHILS % (AUTO) 0 % (0-10); EOSINOPHILS % (AUTO) 0 % (0-10); LYMPHOCYTES # (AUTO) 1.6 X 10^3 (1.0-4.0); LYMPHOCYTES % (AUTO) 12 % (12-44); MONOCYTES # (AUTO) 0.6 X 10^3 (0.0-1.0); MONOCYTES % (AUTO) 4 % (0-12); NEUTROPHILS # (AUTO) 10.9 X 10^3 (1.8-7.8); NEUTROPHILS % (AUTO) 84 % (42-75)
[2020-01-17 09:44] LABS: BUN/CREATININE RATIO 20; CALCIUM 9.7 MG/DL (8.5-10.1); CARBON DIOXIDE 25 MMOL/L (21-32); CHLORIDE 97 MMOL/L (98-107); CREATININE SERUM 0.59 MG/DL (0.60-1.30); GFR ESTIMATED > 60; GLUCOSE 131 MG/DL (70-105); POTASSIUM 3.6 MMOL/L (3.6-5.0); SODIUM 138 MMOL/L (135-145)
[2020-01-17 09:45] LABS: ALANINE AMINOTRANSFERASE 7 U/L (0-55); ALBUMIN 4.6 GM/DL (3.2-4.5); ALKALINE PHOSPHATASE 83 U/L (40-136); BILIRUBIN,TOTAL 0.3 MG/DL (0.1-1.0); LIPASE 34 U/L (8-78); TOTAL PROTEIN 7.8 GM/DL (6.4-8.2)
[2020-01-17] MEDS ORDERED: PROM25SU44 RC (09:57)
[2020-01-17 10:10] VITALS: BP 164/87
== END 2020-01-17 10:10 | disposition home or self-care (01) ==
LOC: EDUNIT# 08:41 → ER FS 08:43
DX: R10.13 Epigastric pain (principal); R11.2 Nausea with vomiting, unspecified; K21.9 Gastro-esophageal reflux disease without esophagitis; Z88.5 Allergy status to narcotic agent; Z87.19 Personal history of other diseases of the digestive system
CPT/HCPCS: 36415; 80053; 83690; 85025

== ENCOUNTER 2020-01-18 12:53 | Emergency (ER) | payer MEDICAID ==
[~2020-01-18] VITALS: Ht 170 cm; Wt 90.0 kg
[~2020-01-18 12:53] MED LIST changes: +PROM25SU44 RC
[2020-01-18] MEDS ORDERED: NS IV 1000 ML 1,000 ML ONE (13:08)
[2020-01-18] MEDS ORDERED: ONDANSETRON 4 MG/2 ML (SDV) Z0FRAN ONE (13:08)
[2020-01-18] MEDS ORDERED: ONDANSETRON 4 MG/2 ML (SDV) Z0FRAN IVP ONE (13:15)
[2020-01-18] MEDS ORDERED: NS IV 1000 ML 1,000 ML IV ONE (13:15)
--- NOTE | 2020-01-18 13:41 | ED Abdominal Pain ---
General Chief Complaint: Abdominal/GI Problems Stated Complaint: VOMITING Nursing Triage Note: PT WAS HERE YESTERDAY FOR VOMITING PRESCRIBED PHENERGAN SUPPOSITORIES AND SHE STATES THEY ARE NOT WORKING. SHE IS STILL NAUSEATED AND VOMITING. Sepsis Screen: No Definite Risk Source of Information: Patient Exam Limitations: No Limitations History of Present Illness Date Seen by Provider: January 18, 2020 Time Seen by Provider: 13:10 Initial Comments 44-year-old female presents to the emergency room with continued vomiting and abdominal pain in the epigastric area. Patient states that she was here yesterday in the emergency room received a GI cocktail and Phenergan which did improve her overall condition. She states that she started getting sick again once returning home. 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 She has a new medication that she was supposed to fill but did not have the funds to purchase. Patient has a history of lupus and is taking hydroxychloroquine in addition to several other GI medications. She has a his tory of joint discomfort secondary to the lupus GI upset and denies any ischemic heart disease or pulmonary component. Patient has a history of anxiety and depression and chronic pain syndrome. She has received hydrocodone 12/30/24 from [facility] in [place]. Controlled substance pharmacy monitoring program was checked. Timing/Duration: 4-5 Days Severity/Quality: Moderate Location: Epigastric Radiation: Back Activities at Onset: Activity Modifying Factors: Improves With Eating Associated Symptoms: Back Pain, Other (joint pain from lupus symptomatology) Allergies and Home Medications Allergies Coded Allergies: tramadol (Verified Allergy, Intermediate, 10/26/18) Home Medications Lansoprazole 15 Mg Capsule.dr, 15 MG PO DAILY Prescribed by: ZACHARY BRANDON on 10/26/181916 Metoclopramide HCl 10 Mg Tablet, 10 MG PO QIDPCHS Prescribed by: ZACHARY BRANDON on 10/26/181916 Metoclopramide HCl 10 Mg Tablet, 10 MG PO QID PRN for NAUSEA/VOMITING Prescribed by: MARKELL BYERS MD on 09/10/191101 Omeprazole 40 Mg Capsule.dr, 40 MG PO Q12H Prescribed by: MARKELL BYERS MD on 09/10/191101 Promethazine HCl 25 Mg Supp.rect, 25 MG RC Q6H PRN for NAUSEA/VOMITING-1ST LINE Prescribed by: ARTHUR COELHO on 01/17/20 0957 Patient Home Medication List Home Medication List Reviewed: Yes Review of Systems Review of Systems Constitutional: see HPI, malaise, weakness, other (abdominal pain nausea and vomiting) EENTM: No Symptoms Reported Respiratory: Cough (occasional cough and patient has postnasal drip no shortness of breath or fever) Cardiovascular: No Symptoms Reported Gastrointestinal: Abdominal Pain (epigastric), Nausea, Vomiting (improved with Phenergan and Zofran) Genitourinary: No Symptoms Reported Musculoskeletal: back pain, joint pain (from lupus), muscle weakness (from dehydration) Skin: change in color (with lupus rash), lesions (from lupus) Psychiatric/Neurological: Anxiety, Depressed (from chronic illness), Weakness (from dehydration) Endocrine: No Symptoms Reported Hematologic/Lymphatic: No Symptoms Reported Past Mkrpqzp-Zsyxgz-Syylmp Hx Past Med/Social Hx: Reviewed Nursing Past Med/Soc Hx Patient Social History Alcohol Use: Denies Use Recreational Drug Use: No Smoking Status: Current Everyday Smoker Type Used: Cigarettes 2nd Hand Smoke Exposure: No Recent Foreign Travel: No Contact w/Someone Who Travel: No Recent Infectious Disease Expo: No Recent Hopitalizations: No Physical Abuse: No Sexual Abuse: No Mistreated: No Fear: No Seasonal Allergies Seasonal Allergies: No Past Medical History Surgeries: Yes Section, Gallbladder Respiratory: No Cardiac: No Neurological: No Genitourinary: No Gastrointestinal: No Gastroesophageal Reflux, Ulcer Musculoskeletal: No Arthritis, Fibromyalgia Endocrine: Yes Lupus HEENT: No Cancer: No Psychosocial: No Integumentary: No Blood Disorders: No Adverse Reaction/Blood Tranf: No Physical Exam Vital Signs Vital Signs - First Documented 01/18/20 13:05 Temp 37.3 Pulse 90 Resp 18 B/P (MAP) 146/96 (113) Pulse Ox 98 O2 Delivery Room Air Capillary Refill : Less Than 3 Seconds Height/Weight/BMI Height: 5'7.00" Weight: 185lbs. oz. 83.888249wo; 31.00 BMI Method:Stated General Appearance: moderate distress (secondary to intractable nausea and vomiting), obese HEENT: PERRL/EOMI, normal ENT inspection, pharynx normal Neck: non-tender, full range of motion, supple, normal inspection Respiratory: chest non-tender, lungs clear (with large airway mucus), no respiratory distress, no accessory muscle use Cardiovascular: normal peripheral pulses, regular rate, rhythm, no edema, no gallop, no JVD, no murmur Peripheral Pulses: 2+ Carotid (R), 2+ Carotid (L) Gastrointestinal: normal bowel sounds, soft, no organomegaly, no pulsatile mass, tenderness (epigastric area no rebound tenderness) Extremities: normal range of motion, normal inspection, no pedal edema, no calf tenderness, other (knee and hip joint tenderness secondary to lupus exacerbation) Back: normal inspection, no CVA tenderness, vertebral tenderness (low back lumbar area secondary to lupus) 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, no motor/sensory deficits, alert, normal mood/affect, oriented x 3 Skin: normal color, warm/dry, other (patient reports history of lupus rashes currently not active) Lymphatic: no adenopathy Progress/Results/Core Measures Results/Orders Lab Results Laboratory Tests Test 01/18/20 13:17 01/18/20 13:40 Range/Units White Blood Count 12.6 H 4.3-11.0 10^3/uL Red Blood Count 4.18 L 4.35-5.85 10^6/uL Hemoglobin 12.7 11.5-16.0 G/DL Hematocrit 37 35-52 % Mean Corpuscular Volume 89 80-99 FL Mean Corpuscular Hemoglobin 30 25-34 PG Mean Corpuscular Hemoglobin Concent 34 32-36 G/DL Red Cell Distribution Width 12.0 10.0-14.5 % Platelet Count 346 130-400 10^3/uL Mean Platelet Volume 10.1 7.4-10.4 FL Neutrophils (%) (Auto) 77 H 42-75 % Lymphocytes (%) (Auto) 16 12-44 % Monocytes (%) (Auto) 6 0-12 % Eosinophils (%) (Auto) 0 0-10 % Basophils (%) (Auto) 0 0-10 % Neutrophils # (Auto) 9.7 H 1.8-7.8 X 10^3 Lymphocytes # (Auto) 2.0 1.0-4.0 X 10^3 Monocytes # (Auto) 0.8 0.0-1.0 X 10^3 Eosinophils # (Auto) 0.0 0.0-0.3 10^3/uL Basophils # (Auto) 0.0 0.0-0.1 10^3/uL Sodium Level 135 135-145 MMOL/L Potassium Level 3.6 3.6-5.0 MMOL/L Chloride Level 96 L 98-107 MMOL/L Carbon Dioxide Level 24 21-32 MMOL/L Anion Gap 15 H 5-14 MMOL/L Blood Urea Nitrogen 12 7-18 MG/DL Creatinine 0.53 L 0.60-1.30 MG/DL Estimat Glomerular Filtration Rate > 60 BUN/Creatinine Ratio 23 Glucose Level 118 H 70-105 MG/DL Calcium Level 9.5 8.5-10.1 MG/DL Corrected Calcium 9.1 8.5-10.1 MG/DL Magnesium Level 2.0 1.6-2.4 MG/DL Total Bilirubin 0.3 0.1-1.0 MG/DL Aspartate Amino Transf (AST/SGOT) 12 5-34 U/L Alanine Aminotransferase (ALT/SGPT) 8 0-55 U/L Alkaline Phosphatase 76 40-136 U/L Total Protein 7.7 6.4-8.2 GM/DL Albumin 4.5 3.2-4.5 GM/DL Urine Color YELLOW Urine Clarity CLEAR Urine pH 6.5 5-9 Urine Specific [place] 1.020 1.016-1.022 Urine Protein 1+ H NEGATIVE Urine Glucose (UA) NEGATIVE NEGATIVE Urine Ketones TRACE H NEGATIVE Urine Nitrite NEGATIVE NEGATIVE Urine Bilirubin 1+ H NEGATIVE Urine Urobilinogen 1.0 < = 1.0 MG/DL Urine Leukocyte Esterase NEGATIVE NEGATIVE Urine RBC (Auto) 1+ H NEGATIVE Urine RBC 2-5 H /HPF Urine WBC NONE /HPF Urine Squamous Epithelial Cells >50 H /HPF Urine Crystals NONE /LPF Urine Bacteria MODERATE H /HPF Urine Casts NONE /LPF Urine Mucus MODERATE H /LPF Urine Culture Indicated NO Urine Opiates Screen NEGATIVE NEGATIVE Urine Oxycodone Screen NEGATIVE NEGATIVE Urine Methadone Screen NEGATIVE NEGATIVE Urine Propoxyphene Screen NEGATIVE NEGATIVE Urine Barbiturates Screen NEGATIVE NEGATIVE Ur Tricyclic Antidepressants Screen NEGATIVE NEGATIVE Urine Phencyclidine Screen NEGATIVE NEGATIVE Urine Amphetamines Screen NEGATIVE NEGATIVE Urine Methamphetamines Screen NEGATIVE NEGATIVE Urine Benzodiazepines Screen NEGATIVE NEGATIVE Urine Cocaine Screen NEGATIVE NEGATIVE Urine Cannabinoids Screen NEGATIVE NEGATIVE My Orders Orders - MARYJANE SALEEM DO Ns Iv 1000 Ml (Sodium Chloride 0.9%) (01/18/20 13:15) Ondansetron Injection (Zofran Injectio (5/21/20 13:15) Ns Iv 1000 Ml (Sodium Chloride 0.9%) (01/18/20 13:08) Ondansetron Injection (Zofran Injectio (01/18/20 13:08) Cbc And Manual Diff (01/18/20 13:34) Comprehensive Metabolic Panel (01/18/20 13:34) Magnesium (01/18/20 13:34) Urinalysis (01/18/20 13:34) Drug Screen Stat (Urine) (01/18/20 13:34) Lidocaine 2% Viscous 15 Ml (Xylocaine Vi (01/18/20 14:00) Antacid Suspension (Mylanta Suspension (01/18/20 14:00) Pantoprazole Injection (Protonix Injecti (01/18/20 14:00) Medications Given in ED Current Medications Medications Dose Ordered Sig/Jill Route Start Time Stop Time Status Last Admin Dose Admin Al Hydrox/Mg Hydrox/Simethicone 30 ml ONCE ONCE PO 01/18/20 14:00 01/18/20 14:01 DC 01/18/20 13:54 30 ML Lidocaine HCl 15 ml ONCE ONCE PO 01/18/20 14:00 01/18/20 14:01 DC 01/18/20 13:54 15 ML Ondansetron HCl 4 mg ONCE ONCE IVP 01/18/20 13:15 01/18/20 13:16 DC 01/18/20 13:21 4 MG Pantoprazole 40 mg ONCE ONCE IV 01/18/20 14:00 01/18/20 14:01 DC 01/18/20 13:54 40 MG Sodium Chloride 1,000 ml @ 999 mls/hr Q1H ONCE IV 01/18/20 13:15 01/18/20 14:15 DC 01/18/20 13:20 999 MLS/HR Vital Signs/I&O 01/18/20 01/18/20 13:05 14:32 Temp 37.3 37.1 Pulse 90 82 Resp 18 18 B/P (MAP) 146/96 (113) 122/68 Pulse Ox 98 99 O2 Delivery Room Air Room Air Blood Pressure Mean: 113 Departure Impression Primary Impression: Nausea and vomiting Additional Impressions: Abdominal pain Dehydration Gastroenteritis Disposition: 01 HOME, SELF-CARE Condition: Improved Departure-Patient Inst. Decision time for Depature: 14:37 Referrals: [facility] (PCP) Primary Care Physician JAMIN DUENAS APRN (Family) Primary Care Physician Patient Instructions: Dehydration, Adult (DC), Nausea and Vomiting, Adult, Viral Gastroenteritis, Adult (DC) Add. Discharge Instructions: 44-year-old female has been treated with IV hydration GI cocktail and Zofran. Urinalysis shows contaminated urine dull full for UTI creatinine 0.53 glucose 118 white count 12.6 hemoglobin 12.7. Patient feels much better after being hydrated and given IV Zofran. She does have Zofran ODT at home and has been advised to drink clear fluids without calories at this time because she has an elevated glucose. Patient will follow-up with Dr. Duenas for continued care. She will use Zofran ODT as needed she also has Phenergan suppositories. All discharge instructions reviewed with patient and/or family. Voiced rowena khan. Copy Copies To 1: [facility]/MARYJANE SMITH DO January 18, 2020 13:41
[2020-01-18 13:54] LABS: HEMOGLOBIN 12.7 G/DL (11.5-16.0); MEAN CORPUSCULAR HEMOGLOBIN 30 PG (25-34); WHITE BLOOD COUNT 12.6 10^3/uL (4.3-11.0)
[2020-01-18 13:55] LABS: BASOPHILS % (AUTO) 0 % (0-10); EOSINOPHILS % (AUTO) 0 % (0-10); HEMATOCRIT 37 % (35-52); LYMPHOCYTES % (AUTO) 16 % (12-44); MEAN CORPUSCULAR HGB CONC 34 G/DL (32-36); MEAN CORPUSCULAR VOLUME 89 FL (80-99); MEAN PLATELET VOLUME 10.1 FL (7.4-10.4); MONOCYTES # (AUTO) 0.8 X 10^3 (0.0-1.0); MONOCYTES % (AUTO) 6 % (0-12); NEUTROPHILS # (AUTO) 9.7 X 10^3 (1.8-7.8); NEUTROPHILS % (AUTO) 77 % (42-75); PLATELET COUNT 346 10^3/uL (130-400)
[2020-01-18] MEDS ORDERED: PANTOPRAZOLE 40 MG (PROTONIX) VIAL IV ONE (14:00)
[2020-01-18] MEDS ORDERED: LIDOCAINE 2% VISCOUS 15 ML UDC PO ONE (14:00)
[2020-01-18] MEDS ORDERED: ANTACID SUSP 30 ML UDC (MYLANTA) PO ONE (14:00)
[2020-01-18 14:05] LABS: ALANINE AMINOTRANSFERASE 8 U/L (0-55); ALBUMIN 4.5 GM/DL (3.2-4.5); ALKALINE PHOSPHATASE 76 U/L (40-136); BILIRUBIN,TOTAL 0.3 MG/DL (0.1-1.0); BUN/CREATININE RATIO 23; CALCIUM 9.5 MG/DL (8.5-10.1); CARBON DIOXIDE 24 MMOL/L (21-32); CHLORIDE 96 MMOL/L (98-107); CREATININE SERUM 0.53 MG/DL (0.60-1.30); GFR ESTIMATED > 60; GLUCOSE 118 MG/DL (70-105); POTASSIUM 3.6 MMOL/L (3.6-5.0); SODIUM 135 MMOL/L (135-145); TOTAL PROTEIN 7.7 GM/DL (6.4-8.2)
[2020-01-18 14:16] LABS: CLARITY,URINE CLEAR; COLOR,URINE YELLOW; GLUCOSE, URINE (UA) NEGATIVE (NEGATIVE); KETONES,URINE TRACE (NEGATIVE); NITRITE,URINE NEGATIVE (NEGATIVE); PH,URINE 6.5 (5-9); PROTEIN,URINE 1+ (NEGATIVE)
[2020-01-18 14:17] LABS: BACTERIA,URINE MODERATE /HPF; BILIRUBIN,URINE 1+ (NEGATIVE); LEUKOCYTE ESTERASE ,URINE NEGATIVE (NEGATIVE); SQUAMOUS EPITHELIAL CELL,UR >50 /HPF
--- OUTSIDE RECORDS SUMMARY | 2020-01-18 14:27 | XMS REPORT | Continuity of Care Document ---
Author Organization Unknown Address Unknown Phone Unavailable Allergies Active Description Code Type Severity Reaction Onset Reported/Identified Relationship to Patient Clinical Status Yes tramadol [id number] Drug Allergy Moderate N/A 10/26/2018 Medications There [...] ABSENCE OF OTHER SPECIFIED PART 02/18/2019 YANETH ALLEN FRACISCO Ot F17.290 NICOTINE DEPENDENCE, [...] Status Pt. Type Provider Facility Loc./Unit Complaint [id number] 06/13/2019 11:45:00 06/13/2019 23:59:5 9 [facility] Outpatient JAMIN DUENAS [facility] [id number] 12/01/2019 10:00:00 Document Registration [id number] 01/17/2020 08:43:00 10:10:00 DIS Emergency MELITON DO, ARTHUR M [facility] ER FS VOMITING; NAUSEA; ABD P AIN [id number] 10/09/2019 19:56:00 22:31:00 DIS Emergency JACOBO DO PEYTON L [facility] ER FS ABD PAIN [id number] 10/08/2019 16:19:00 18:05:00 DIS Emergency CORDOVA DO HOMAR L [facility] ER FS VOMITING [id number] 09/10/2019 07:20:00 020 11:13:00 DIS Emergency MODESTA LANDA, MRAKELL Rey [facility] ER FS VOMTING,STOMACH PAINS [id number] 02/18/2019 20:11:00 019 21:06:00 DIS Emergency FRACISCO WOLFE DO [facility] ER FS HEADACHENAUSEA [id number] 10/26/2018 17:03:00 019 19:36:00 DIS Emergency ZACHARY BRANDON DO [facility] ER FS ABD PAIN, ABD SWELLING
[2020-01-18 14:28] LABS: AMPHETAMINE SCREEN, URINE NEGATIVE (NEGATIVE); BARBITURATE SCREEN URINE NEGATIVE (NEGATIVE); BENZODIAZEPINES SCREEN URINE NEGATIVE (NEGATIVE); CANNABINOID SCREEN, URINE NEGATIVE (NEGATIVE); COCAINE SCREEN URINE NEGATIVE (NEGATIVE); METHADONE STAT NEGATIVE (NEGATIVE); METHAMPHETAMINE SCREEN URINE S NEGATIVE (NEGATIVE); OPIATE SCREEN URINE NEGATIVE (NEGATIVE); OXYCODONE STAT NEGATIVE (NEGATIVE); PROPOXYPHENE STAT NEGATIVE (NEGATIVE); TRICYCLIC ANTIDEPRESSANTS SCRE NEGATIVE (NEGATIVE)
[2020-01-18 14:32] VITALS: BP 122/68
[2020-01-18 14:37] LABS: BAND NEUTROPHILS 1 %; BASOPHILS % (MANUAL) 0 %; EOSINOPHILS % (MANUAL) 0 %; LYMPHOCYTES % (MANUAL) 14 %; MONOCYTES % (MANUAL) 9 %; NEUTROPHILS % (MANUAL) 76 %
[2020-01-18 14:38] LABS: RBC MORPH NORMAL
== END 2020-01-18 14:34 | disposition home or self-care (01) ==
LOC: EDUNIT# 12:53 → ER FS 12:54
DX: K52.9 Noninfective gastroenteritis and colitis, unspecified (principal); K21.9 Gastro-esophageal reflux disease without esophagitis; F17.210 Nicotine dependence, cigarettes, uncomplicated; Z88.5 Allergy status to narcotic agent
CPT/HCPCS: 36415; 80053; 80306; 81000; 83735; 85007; 85027

== ENCOUNTER 2021-02-13 15:13 | Emergency (ER) | payer SELFPAY ==
[~2021-02-13 15:13] MED LIST changes: -METO10TA3 PO; +MTC10T PO
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
[2021-02-13 16:53] VITALS: BP 117/76
== END 2021-02-13 16:53 | disposition home or self-care (01) ==
LOC: EDUNIT# 15:13 → ER FS 15:14
DX: T59.91XA Toxic effect of unspecified gases, fumes and vapors, accidental (unintentional), initial encounter (principal); K21.9 Gastro-esophageal reflux disease without esophagitis; Z79.899 Other long term (current) drug therapy
CPT/HCPCS: 71046